=== PATIENT | male | born 1995 | race Caucasian/White ===

== ENCOUNTER 2024-01-07 10:32 | Inpatient (IN) ==
--- NOTE | 2024-01-07 11:11 | Emergency Department Note ---
Impression & Plan Suicidal ideation, Depression ED Provider Note NAME: GIOVANI SAN AGE: 28 SEX: M : 1995 ARRIVES VIA: Walk-In INFORMANT: Patient ED PROVIDER(S): Riaz Cid MD CHIEF COMPLAINT: Suicidal ideation, referred. PLAN: Disposition: Inpatient psychiatric treatment, 3S MEDICAL DECISION MAKING: The patient is a pleasant 28-year-old gentleman with a past medical history of schizoaffective disorder, bipolar disorder, suicidal ideation who presents to the emergency department referred by his PCP office for evaluation and treatment of suicidal ideation which has been ongoing for the past week in the setting of feeling increasingly depressed and hopeless hearing auditory hallucinations that talk about him but denies command hallucinations. Patient reports he stopped taking his medication present for months ago. He reports his follow-up with his outpatient mental health provider had fallen by the [place]. He otherwise denies fevers, chills, cough congestion, GI/ symptoms. He is interested in voluntary psychiatric admission and treatment. He reports he did drink alcohol yesterday to ease his depression but denies any today. On my evaluation patient is no distress, afebrile stable vital signs. He appears melancholy. He reports he reports suicidal nation per above and reports plan to buy a gun. WBC, H/H and platelets within normal limits. Chemistry without metabolic acidosis. Electrolytes and LFTs unremarkable. TSH within normal limits. UA without evidence of infection. Drug screen was positive for MDMA and THC. COVID-19 RNA, VINNIE test was negative. Patient medically cleared. Psychiatric case management assessment was completed and the patient was referred to 3 [facility]. for voluntary inpatient psychiatric treatment. The patient was accepted. 201 was signed. Triage Nursing notes reviewed and agree them. Prior/external medical records reviewed Vital Signs: reviewed Differential diagnosis: Mood disorder, infection, hypoglycemia, electrolyte abnormalities, cardiac sources, intracerebral event, toxicologic, trauma, neurologic, as well as other pathologies. ER treatment provided: N/A. Laboratory studies: See below Consultation(s): Psychiatric case management. HPI: The patient is a pleasant 28-year-old gentleman with a past medical history of schizoaffective disorder, bipolar disorder, suicidal ideation who presents to the emergency department referred by his PCP office for evaluation and treatment of suicidal ideation which has been ongoing for the past week in the setting of feeling increasingly depressed and hopeless hearing auditory hallucinations that talk about him but denies command hallucinations. Patient reports he stopped taking his medication present for months ago. He reports his follow-up with his outpatient mental health provider had fallen by the [place]. He otherwise denies fevers, chills, cough congestion, GI/ symptoms. He is interested in voluntary psychiatric admission and treatment. He reports he did drink alcohol yesterday to ease his depression but denies any today. ROS: See above HPI for pertinent positives & negatives. A total of 10 systems reviewed and were otherwise negative. VITALS:See Below PHYSICAL EXAMINATION: GENERAL: Awake, alert, nontoxic, in no distress HEAD: Atraumatic. No edema. EYES: Normal conjunctiva. Sclera non-icteric. EARS: Right TM normal. Left TM normal. NOSE: Unremarkable. OROPHARYNX: Lips, tongue, and mucosa unremarkable. No erythema, exudate, ulcerations. NECK: Supple. No nuchal rigidity. FROM. No adenopathy. RESPIRATORY: CTA bilaterally CARDIAC: Regular rate, normal rhythm. ABDOMEN: Soft, non distended. No tenderness to palpation. No hernias. BACK: Unremarkable. : Unremarkable. SKIN: No rash or jaundice noted. No desquamation. LYMPH: No adenopathy. MUSCULOSKELETAL: No edema or ecchymosis. No joint swelling. NEURO: Normal sensorium. No sensory or motor deficits noted. PSYCH: Melancholy. Reports suicidal ideation, plan to buy a gun, hopelessness, auditory hallucinations. -- Riaz Cid MD Past Med/Surg History Medical History Depression Schizoaffective disorder Social History Smoking Status: Never smoker Preferred Language: Setswana Communication Ability: Effective Line Maintainer Required: No Beliefs That Will Affect Care: None Feels Safe at Home: Yes Gender Identity: Male Assistive Devices: None Allergies Allergies Allergy/AdvReac Type Severity Reaction Status Date / Time mold Allergy Unknown ASTHMA Unverified 08/19/17 06:28 FLARES Sulfa (Sulfonamide Allergy Unknown SWELLING/SORES Unverified 08/19/17 06:28 Antibiotics) IN MOUTH Home Meds Home Medications Medication Instructions Recorded Confirmed bupropion HCl 100 mg tablet 100 mg PO DAILY 01/07/24 01/07/24 lurasidone 40 mg tablet 40 mg PO DAILY 01/07/24 01/07/24 trazodone 100 mg tablet 100 mg PO HS 01/07/24 01/07/24 Results & Data (ED) Vital Signs Vital Signs - 24 hr 01/07/24 10:34 01/07/24 10:45 01/07/24 14:30 Temperature 36.8 C 36.8 C Temperature Source Temporal Artery Scan Oral Pulse Rate 89 Pulse Rate [Right Finger] 86 86 Pulse Rhythm [Right Finger] Regular Regular Pulse Strength [Right Finger] Normal Normal Respiratory Rate 14 20 19 Respiratory Effort / Characteristics Non-Labored Spontaneous Non-Labored Spontaneous Respiratory Depth Normal Normal Respiratory Pattern Regular Regular Blood Pressure 139/87 Blood Pressure [Right Arm] 136/87 139/89 Blood Pressure Mean 104 Blood Pressure Mean [Right Arm] 103 105 Blood Pressure Position [Right Arm] Semi-fowlers Pulse Oximetry 97 98 94 Oxygen Delivery Method Room Air Room Air Room Air Sepsis New/Unexplained Change in Mental Status No Sepsis Action Taken by Nursing No Action Required Laboratory Data Attestation: I reviewed the patient's lab results. 01/07/24 11:10 01/07/24 11:10 Lab Results 01/07/24 Range/Units 11:10 WBC 8.77 (4.8-10.8) K/ul RBC 5.19 (4.70-6.10) M/uL Hgb 15.5 (14.0-18.0) g/dl Hct 44.9 (42.0-52.0) % MCV 86.5 (80.0-100.0) fL MCH 29.9 (25.0-34.0) pg MCHC 34.5 (32.0-36.0) g/dL RDW Std Deviation 40.5 (36.4-46.3) fL RDW Coeff of Samy 13.0 (11.5-14.5) % Plt Count 328 (130-400) K/uL MPV 10.8 (9.4-12.4) fL Immature Gran % (Auto) 0.2 % Neut % (Auto) 74.2 % Lymph % (Auto) 16.2 % [place] % (Auto) 8.4 % Eos % (Auto) 0.8 % Baso % (Auto) 0.2 % Neut # (Auto) 6.50 (1.40-6.50) K/uL Lymph # (Auto) 1.42 (1.20-3.40) K/uL [place] # (Auto) 0.74 H (0.11-0.59) K/uL Eos # (Auto) 0.07 (0.00-0.50) K/uL Baso # (Auto) 0.02 (0.00-0.20) K/uL Immature Gran # (Auto) 0.02 (0.01-0.20) K/uL Sodium 135 L (136-145) mmol/L Potassium 4.1 (3.5-5.1) mmol/L Chloride 103 (98-107) mmol/L Carbon Dioxide 24 (21-32) mmol/L Anion Gap 8 (3-11) BUN 13 (6-23) mg/dl Creatinine 0.83 (0.6-1.4) mg/dl Est Cr Clr Drug Dosing 194.0 ml/min Est GFR ( Amer) 140.7 ml/min Est GFR (Non-Af Amer) 121.4 ml/min BUN/Creatinine Ratio 15.7 (10-20) Glucose 90 (70-99(Fasting)) mg/dl Calcium 9.1 (8.6-10.3) mg/dl Total Bilirubin 0.4 (0.2-1.0) mg/dl AST 17 (13-39) U/L ALT 17 (7-52) U/L Alkaline Phosphatase 81 (34-104) U/L Total Protein 7.7 (6.0-8.3) gm/dl Albumin 4.4 (3.4-5.0) gm/dl Globulin 3.3 (2.5-4.0) gm/dl Albumin/Globulin Ratio 1.3 (0.9-2) TSH 0.665 (0.300-4.500) uIu/ml Salicylates < 3.0 L (3.0-30) mg/dl Acetaminophen < 3 L (10-30) ug/ml Ethyl Alcohol mg/dL < 10.0 (<10.0) mg/dl Administered Medications Nicotine (Nicotine 21 Mg/24 Hr Tdsy) 21 mg TD QAM MARJORIE Stop: 02/06/24 14:44 Last Admin: 01/07/24 18:59 Dose: Not Given Documented By: RB Discharge Plan Visit Data Chief Complaint: Mental Health Evaluation Stated Complaint: [facility] ED Provider: Riaz Cid Discharge Problem: Suicidal ideation, Depression Patient Disposition: Admitted As Inpatient Discharge Instructions Interventions: ED Discharge Assessment Last Done: 01/07/24 15:35 Discharge Problem: Depression Qualifiers: Depression Type: unspecified Qualified Code(s): F32.A - Depression, unspecified
[2024-01-07 11:34] LABS: Basophils # (auto) 0.02 K/uL (0.00-0.20); Basophils % (auto) 0.2 %; Eosinophils # (auto) 0.07 K/uL (0.00-0.50); Eosinophils % (auto) 0.8 %; Hematocrit (blood only) 44.9 % (42.0-52.0); Hemoglobin 15.5 g/dl (14.0-18.0); Immature Granulocytes # (auto) 0.02 K/uL (0.01-0.20); Immature Granulocytes % (auto) 0.2 %; Lymphocytes # (auto) 1.42 K/uL (1.20-3.40); Lymphocytes % (auto) 16.2 %; Mean Corpuscular Hemoglobin 29.9 pg (25.0-34.0); Mean Corpuscular Hgb Conc 34.5 g/dL (32.0-36.0); Mean Corpuscular Volume 86.5 fL (80.0-100.0); Mean Platelet Volume 10.8 fL (9.4-12.4); Monocytes # (auto) 0.74 K/uL (0.11-0.59); Monocytes % (auto) 8.4 %; Neutrophils % (auto) 74.2 %; Platelet Count 328 K/uL (130-400); RDW Standard Deviation 40.5 fL (36.4-46.3); Red Blood Count 5.19 M/uL (4.70-6.10); White Blood Count 8.77 K/ul (4.8-10.8)
[2024-01-07 11:47] LABS: Appearance Urine Clear (Clear); Bilirubin Urine Negative (Negative); Blood Urine Negative (Negative); Color Urine Yellow; Glucose Urine UA Negative (Negative); Ketones Urine 1+ (Negative); Leukocyte Esterase Urine Negative (Negative); Nitrite Urine Negative (Negative); Protein Urine Negative (Negative); Specific Gravity Urine 1.009 (1.000-1.030); Urobilinogen Urine Negative (Negative)
[2024-01-07 11:49] LABS: Albumin Level 4.4 gm/dl (3.4-5.0); Bilirubin,Total 0.4 mg/dl (0.2-1.0); Calcium 9.1 mg/dl (8.6-10.3); Potassium 4.1 mmol/L (3.5-5.1)
[2024-01-07 11:55] LABS: Albumin Globulin Ratio 1.3 (0.9-2); BUN Creatinine Ratio 15.7 (10-20); Est GFR (African American) 140.7 ml/min; Est GFR (Non-African American) 121.4 ml/min; Globulin 3.3 gm/dl (2.5-4.0); Total Protein 7.7 gm/dl (6.0-8.3)
[2024-01-07 12:08] LABS: Thyroid Stimulating Hormone 0.665 uIu/ml (0.300-4.500)
[2024-01-07 12:13] LABS: Acetaminophen < 3 ug/ml (10-30); Salicylate < 3.0 mg/dl (3.0-30)
[2024-01-07 12:20] LABS: Amphetamines+Metham, Urine Neg (Neg); Barbiturates, Urine Neg (Neg); Benzodiazepine, Urine Neg (Neg); Cocaine, Urine Neg (Neg); MDMA (Ecstacy), Urine Pos (Neg); Marijuana, Urine Pos (Neg); Methadone, Urine Neg (Neg); Opiate, Urine Neg (Neg); Phencyclidine, Urine Neg (Neg)
[2024-01-07] MEDS ORDERED: ACETAMINOPHEN 325 MG TAB PO PRN (14:33)
[2024-01-07] MEDS ORDERED: SODIUM CHLORIDE 0.65% NA SOLN 45 ML (OCEAN) PRN (14:33)
[2024-01-07] MEDS ORDERED: ALUMINUM/MAGNESIUM SUSP 30 ML UDC PO PRN (14:33)
[2024-01-07] MEDS ORDERED: MAGNESIUM HYDROXIDE SUSP 30 ML UDC PO PRN (14:33)
[2024-01-07] MEDS ORDERED: NICOTINE POLACRILEX 2 MG GUM MT PRN (14:33)
[2024-01-07] MEDS ORDERED: BISMUTH SUBSALICYLATE LIQD 236 ML PO PRN (14:33)
--- OUTSIDE RECORDS SUMMARY | 2024-01-07 16:12 | External Medical Summary | Summary of Care ---
Author Name Unknown Organization [facility] Address [address] [place] [address] Phone [phone] Care Team Providers Care American Sign Language Interpreter Name Role Phone Unavailable Primary Care Provider Unavailabl e Encounter Details Date Type Department Care Team (Late st Contact Info) Description 11/19/2023 Orders Only Outcomes Research Department [address] [place] [address] Charissa Edmond CHRA [employer] Other*[id number] Allergies Active Allergy Reactions Criticality Noted Date Comments Amphetamine-Dextroamphetam ine 04/18/2021 Urine screening toxicology inconsistent with medical therapy. Not appropriate for refill of stimulant medication for ADD Sulfa Antibiotics 05/31/1999 rash and mouth ulcers Sulfites 10/30/2006 Dried apricots,trail mix documented as of this encounter (statuses as of 11/19/2023) Medications Medication Sig Dispensed Refills Start Date End Date Status buPROPion HCl ER (SR) 100 MG Oral Tablet Extended Release 12 Hour (Wellbutrin SR) Take 1 Tablet by mouth in the morning. 0 Active Lurasidone HCl 40 MG Oral Tablet Take by mouth daily . 0 Active [place] Carbonate 150 MG Oral Capsule (Eskalith) Take 1 Capsule by mouth in the morning and 1 Capsule at noon and 1 Capsule in the evening. Take with meals. 0 Active traZODone HCl 100 MG Oral Tablet (Desyrel) take 1 AND 1/2 tablets by mouth at bedtime if needed 0 07/22/2023 Active Azithromycin 250 MG Oral Tablet (Zithromax Z-Rancho)Indications:Ac [place] sinusitis, recurrence not specified, unspecified location Take two tablets by mouth on first day, then 1 tablet daily until gone 6 Tablet 0 10/22/2023 Active Molnupiravir 200 MG Oral CapsuleIndications:C OVID-19 virus infection Take 4 Capsules by mouth in the morning and 4 Capsules before bedtime. 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 documented as of this encounter (statuses as of 11/19/2023) Resolved Problems Problem Noted Date Diagnosed Date Resolved Date Schizoaffective disorder, depressive type 08/06/2023 10/22/2023 Food insecurity 05/02/2021 05/12/2021 Overview: Per [facility] Protocol Acute bronchitis, complicated 02/05/2012 03/19/2013 Acute atopic conjunctivitis 10/16/2006 03/19/2013 ADVANCE DIRECTIVE INFORMATION 02/23/2006 07/29/2008 Overview: Not applicable Allergic rhinitis 01/01/2003 11/06/2012 Nocturnal enuresis 03/31/2002 8 documented as of this encounter (statuses as of 11/19/2023) Immunizations Name Administration Dates Next Due COVID-19, mRNA, LNP-s, PF, B ooster, 100mcg/0.5mg (Moderna) 09/25/2021 Covid-19 Ad26, Single Dose ([place]/J&J) 01/31/2021 HPV Vaccine, 4-Valent 03/19/2013 HPV Vaccine, 9-Valent 08/21/2017 Hep A - Hepatitis A (ped/ado le, 1-18 Yrs) 10/13/2008,07/05/2007 Meningococcal Conjugate Vacc ine (Menactra/Menveo) 10/13/2008 Seasonal Influenza, PF, 6 M & above, IM , (FluLaval or Fluzone) 09/13/2021,08/21/2017 Seasonal Influenza, Split, I IV3, With Preserve, Inj 06/06/2012,08/15/2010,06/29/2008,06/24,08/14/2006 06/06/2013 TDAP (age 11 and older)(Adacel) 10/13/2008 Varicella Vaccine (Chicken Pox) 07/05/2007 documented as of this encounter Social History Tobacco Use Types Packs/Day Years Used Date Smoking Tobacco: Never Smokeless Tobacco: Never Alcohol Use Standard Drinks/Week Comments Not Currently 0 (1 standard drink = 0.6 oz pur e alcohol) PHQ-2 Answer Date Recorded PHQ Adult Total Score 12 04/04/2021 Hunger Vital Sign Answer Date Recorded Within the past 12 months, y ou worried that your food would run out before you got the money to buy more. Sometimes true Within the past 12 months, t he food you bought just didn't last and you didn't have money to get more. Never true 07/2021 Sex and Gender Information Value Date Recorded Sex Assigned at Not on file Gender Identity Not on file Sexual Orientation Not on file Job Start Date Occupation Industry Not on file Not on file Not on file documented as of this encounter Plan of Treatment Upcoming Encounters Date Type Department Care Team (Late st Contact Info) Description 11/26/2023 9:40 AM EST Office Visit Family Practice [facility] [address] [id number] Millie Gaytan CRNP [address] [id number] Scheduled Orders Name Type Priority Associated Diagnoses Orde r Schedule MYCODE INITIAL ADULT Lab Routine [employer] Research Other*[id number] Expected: 11/19/2023 (Approximate), Expires: 12/08/2024 Health Maintenance Due Date Last Done Comments Pneumococcal Vaccine: Pediatrics (0 to 5 Years) and At-Risk Patients (6 to 64 Years) (1 of 2 - PCV) 2003 HIV Screening 02/08/2012 Hepatitis C Screening 2015 GARDASIL-HPV IMMUNIZATION SERIES (3 - Male 3-dose series) 11/13/2017 08/21/2017, 03/19/2013 DTaP,Tdap,and Td Vaccines (7 - Td or Tdap) 10/13/2018 10/13/2008, 03/31/2002, 07/30/1998, Additional history exists Depression, Most Recent Score >= 10 (will fire each visit until score < 10) 04/05/2021 04/04/2021 COVID-19 Vaccine ( - season) 2023 09/25/2021, 01/31/2021 Influenza Vaccine (FLU shot) (#1) 2023 09/13/2021, 08/21/2017, 06/06/2012, Additional history exists Hepatitis B Completed [birth year] MENINGOCOCCAL (MENACTRA/MENVEO) Aged Out 10/13/2008 No longer eligible based on patient's age to complete this topic documented as of this encounter Medical Devices Not on filedocumented as of this encounter Visit Diagnoses Diagnosis [employer] [facility] Other*[id number] documented in this encounter
--- OUTSIDE RECORDS SUMMARY | 2024-01-07 16:12 | External Medical Summary | Summary of Care ---
Author Name Unknown Organization [facility] Address [address] [facility] [place] [place] [address] Phone [phone] Care Team Providers Care Cover Assembler Name Role Phone Unavailable Primary Care Provider Unavailabl e Encounter Details Date Type Department Care Team (Late st Contact Info) Description 11/14/2023 Orders Only PATIENT PORTAL DO NOT DELETE THIS DEPT USED BY [address] [place] [id number] Allergies Active Allergy Reactions Criticality Noted Date Comments Amphetamine-Dextroamphetam ine 04/18/2021 Urine screening toxicology inconsistent with medical therapy. Not appropriate for refill of stimulant medication for ADD Sulfa Antibiotics 05/31/1999 rash and mouth ulcers Sulfites 10/30/2006 Dried apricots,trail mix documented as of this encounter (statuses as of 11/14/2023) Medications Medication Sig Dispensed Refills Start Date End Date Status buPROPion HCl ER (SR) 100 MG Oral Tablet Extended Release 12 Hour (Wellbutrin SR) Take 1 Tablet by mouth in the morning. 0 Active Lurasidone HCl 40 MG Oral Tablet Take by mouth daily . 0 Active [place] Carbonate 150 MG Oral Capsule (Eskalith) Take 1 Capsule by mouth in the morning and 1 Capsule at noon and 1 Capsule in the evening. Take with meals. 0 Active traZODone HCl 100 MG Oral Tablet (Desyrel) take 1 AND 1/2 tablets by mouth at bedtime if needed 0 07/22/2023 Active Azithromycin 250 MG Oral Tablet (Zithromax Z-Rancho)Indications:Ac [place] sinusitis, recurrence not specified, unspecified location Take two tablets by mouth on first day, then 1 tablet daily until gone 6 Tablet 0 10/22/2023 Active Molnupiravir 200 MG Oral CapsuleIndications:C OVID-19 virus infection Take 4 Capsules by mouth in the morning and 4 Capsules before bedtime. 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 documented as of this encounter (statuses as of 11/14/2023) Resolved Problems Problem Noted Date Diagnosed Date Resolved Date Schizoaffective disorder, depressive type 08/06/2023 10/22/2023 Food insecurity 05/02/2021 05/12/2021 Overview: Per [facility] Protocol Acute bronchitis, complicated 02/05/2012 03/19/2013 Acute atopic conjunctivitis 10/16/2006 03/19/2013 ADVANCE DIRECTIVE INFORMATION 02/23/2006 07/29/2008 Overview: Not applicable Allergic rhinitis 01/01/2003 11/06/2012 Nocturnal enuresis 03/31/2002 8 documented as of this encounter (statuses as of 11/14/2023) Immunizations Name Administration Dates Next Due COVID-19, [...] as of this encounter Plan of Treatment Health Maintenance Due Date Last Done Comments [...] score < 10) 04/05/2021 04/04/2021 COVID-19 Vaccine (3 - 2022- season) 2023 09/25/2021, 01/31/2021 Influenza Vaccine (FLU shot) (#1) 2023 09/13/2021, 08/21/2017, 06/06/2012, Additional history exists Hepatitis B Completed 1995, 03/25, 1995 MENINGOCOCCAL (MENACTRA/MENVEO) Aged Out 10/13/2008 No longer eligible based on patient's age to complete this topic documented as of this encounter Medical Devices Not on filedocumented as of this encounter
--- OUTSIDE RECORDS SUMMARY | 2024-01-07 16:12 | External Medical Summary | Summary of Care ---
Author Name Unknown Organization [facility] Address [address] [facility] [place] [address] Phone [phone] Care Team Providers Care Connection Worker Name Role Phone Unavailable Primary Care Provider Unavailabl e Reason for Visit * Reason Comments Acute Congestion Cough Encounter Details Date Type Department Care Team (Late st Contact Info) Description 10/22/2023 11:20 AM EST Telemedicine Family Practice [facility] [address] [address] Nadia Pereyra PA-C [address] [address] Acute sinusitis, recurrence not specified, unspecified location*; Acute cough; Mild intermittent asthma, uncomplicated Allergies Active Allergy Reactions Criticality Noted Date Comments Amphetamine-Dextroamphetam ine 04/18/2021 Urine screening toxicology inconsistent with medical therapy. Not appropriate for refill of stimulant medication for ADD Sulfa Antibiotics 05/31/1999 rash and mouth ulcers Sulfites 10/30/2006 Dried apricots,trail mix documented as of this encounter (statuses as of 10/22/2023) Medications Medication Sig Dispensed Refills Start Date End Date Status buPROPion HCl ER (SR) 100 MG Oral Tablet Extended Release 12 Hour (Wellbutrin SR) Take 1 Tablet by mouth in the morning. 0 Active Lurasidone HCl 40 MG Oral Tablet Take by mouth daily . 0 Active [place] Carbonate 150 MG Oral Capsule (Eskalith) Take 1 Capsule by mouth in the morning and 1 Capsule at noon and 1 Capsule in the evening. Take with meals. 0 Active traZODone HCl 100 MG Oral Tablet (Desyrel) take 1 AND 1/2 tablets by mouth at bedtime if needed 0 07/22/2023 Active Azithromycin 250 MG Oral Tablet (Zithromax Z-Rancho)Indications:Acut e sinusitis, recurrence not specified, unspecified location Take two tablets by mouth on first day, then 1 tablet daily until gone 6 Tablet 0 10/22/2023 Active documented as of this encounter (statuses as of 10/22/2023) Active Problems Problem Noted Date Diagnosed Date Food insecurity 06/06/2021 Overview: Per [facility] Protocol ADHD (attention deficit hype ractivity disorder), combined type 05/12/2021 LANI (generalized anxiety disorder) 05/12/2021 Allergic rhinitis 11/06/2012 Ocular migraine 07/10/2012 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 documented as of this encounter (statuses as of 10/22/2023) Resolved Problems Problem Noted Date Diagnosed Date Resolved Date Schizoaffective disorder, depressive type 08/06/2023 10/22/2023 Food insecurity 05/02/2021 05/12/2021 Overview: Per [facility] Protocol Acute bronchitis, complicated 02/05/2012 03/19/2013 Acute atopic conjunctivitis 10/16/2006 03/19/2013 ADVANCE DIRECTIVE INFORMATION 02/23/2006 07/29/2008 Overview: Not applicable Allergic rhinitis 01/01/2003 11/06/2012 Nocturnal enuresis 03/31/2002 8 documented as of this encounter (statuses as of 10/22/2023) Immunizations Name Administration Dates Next Due COVID-19, [...] on file documented as of this encounter Progress Notes * Nadia Pereyra PA-C - 10/22/2023 1:11 PM EST Patient location: HOME. I was in a hospital or clinic location. After connecting through televideo,patient was verified with two unique identifiers. Patient (or authorized legal apprenticeship representative) was then informed that this was a Telemedicine visit and being conducted confidentially over secure lines. Methods to assure confidentiality were taken. Patient acknowledged consent and understanding of pr ivacy and security of the Telemedicine visit. The patient agreed to participate. Patient is a 28 yr old male with complaints of cough and sinus congestion x 3 weeks. Patient stateshe has been using over the counter with little relief. Patient states he is unsure of a fever. Patient states he is bringing up a lot of phlegm as well. Past Medical History: Diagnosis Date Allergic rhinitis 11/06/2012 Intermittent asthma with reliever use up to twice per week 01/01/2003 2013-no need for inhalers. 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 Good network of friends. Lives with father--. Social Determinants of Health Financial Resource Strain: Not on file Food Insecurity: Food Insecurity Present (04/03/2021) Hunger Vital Sign Worried About Running Out of Food in the Last Year: Sometimes true Ran Out of Food in the Last Year: Never true Transportation Needs: Not on file Physical Activity: Not on file Stress: Not on file Social Connections: Not on file Intimate Partner Violence: Not on file Housing Stability: Not on file Family History Problem Relation Age of Onset Hypertension Father Other (low thyroid) Father 39 Thyroid Disorder Grandmother (Maternal) low thyroid Neurological Disorder Mother Heart Disorder Grandfather (Paternal) 62 CA- No Past Hx Brother older bro Heart Disorder Uncle (Unspecified) 34 several MIs--in past Patient Active Problem List Diagnosis Code Intermittent asthma with reliever use up to twice per week J45.20 Intestinal disaccharidase deficiency E73.9 Ocular migraine G43.109 Allergic rhinitis J30.9 ADHD (attention deficit hyperactivity disorder), combined type F90.2 LANI (generalized anxiety disorder) F41.1 Food insecurity Z59.41 Current Outpatient Medications Medication Sig Dispense Refill Azithromycin 250 MG Oral Tablet (Zithromax Z-Rancho) Take two tablets by mouth on first day, then 1 tablet daily until gone 6 Tablet 0 buPROPion HCl ER (SR) 100 MG Oral Tablet Extended Release 12 Hour (Wellbutrin SR) Take 1 Tablet by mouth in the morning. Lurasidone HCl 40 MG Oral Tablet Take by mouth daily . [place] Carbonate 150 MG Oral Capsule (Eskalith) Take 1 Capsule by mouth in the morning and 1 Capsule at noon and 1 Capsule in the evening. Take with meals. traZODone HCl 100 MG Oral Tablet (Desyrel) take 1 AND 1/2 tablets by mouth at bedtime if needed No current facility-administered medications for this visit. ALLERGIES REVIEWED AND UPDATED. Review of Systems: See HPI for pertinent positives. All other review of systems is negative. MALE PHYSICAL EXAM There were no vitals taken for this visit. GENERAL: alert, healthy, and no distress HEAD: Normocephalic, No masses, lesions, tenderness or abnormalities SKIN: skin color, texture, turgor are normal, no rashes or significant lesions EYES: PERRLA, extraocular movements intact, conjunctiva are pink and non- injected, sclera clear Assessment & Plan (J01.90) Acute sinusitis, recurrence not specified, unspecified location (primary encounter diagnosis) Plan: Azithromycin 250 MG Oral Tablet (Zithromax Z-Rancho) Increase fluids and rest. Recommended tylenol or motrin for symptoms relief. If symptoms persist orworsen patient to return to office. (R05.1) Acute cough Plan: increase fluids and rest. Recommended tylenol or motrin for symptoms relief. If symptoms persist or worsen patient to return to office (J45.20) Mild intermittent asthma, uncomplicated Plan: stable. Follow up with pcp as needed. I spent a total of 20-29 minutes (exact time 21 mins) on the date of service in preparation, delivery, and documentation of the care provided to Nacho Michaels excluding any time spent in the performance of separately billed services. documented in this encounter Plan of Treatment Health Maintenance Due Date Last Done Comments Pneumococcal Vaccine: Pediatrics (0 to 5 Years) and At-Risk Patients (6 to 64 Years) (1 - PCV) 2003 HIV Screening 02/08/2012 Hepatitis C Screening 2015 GARDASIL-HPV IMMUNIZATION SERIES (3 - Male 3-dose series) 11/13/2017 08/21/2017, 03/19/2013 DTaP,Tdap,and Td Vaccines (7 - Td or Tdap) 10/13/2018 10/13/2008, 03/31/2002, 07/30/1998, Additional history exists Depression, Most Recent Score >= 10 (will fire each visit until score < 10) 04/05/2021 04/04/2021 COVID-19 Vaccine ( season) 2023 09/25/2021, 01/31/2021 Influenza Vaccine (FLU shot) (#1) 2023 09/13/2021, 08/21/2017, 06/06/2012, Additional history exists Hepatitis B Completed 1997, 03/25, 1997 MENINGOCOCCAL (MENACTRA/MENVEO) Aged Out 10/13/2008 No longer eligible based on patient's age to complete this topic documented as of this encounter Medical Devices Not on filedocumented as of this encounter Visit Diagnoses Diagnosis Acute sinusitis, recurrence not specified, unspecified location- Primary Acute cough Mild intermittent asthma, uncomplicated Unspecified asthma documented in this encounter
--- OUTSIDE RECORDS SUMMARY | 2024-01-07 16:12 | External Medical Summary | Summary of Care ---
Author Name Unknown Organization [facility] Address [address] [place] [address] Phone [phone] Care Team Providers Care Elevator Repairer Apprentice Name Role Phone Unavailable Primary Care Provider Unavailabl e Reason for Visit * Reason Comments Acute Encounter Details Date Type Department Care Team (Late st Contact Info) Description 10/23/2023 5:40 PM EST [facility] [address] [place] [address] Ranjith Mckay, [address] [place] [address] COVID-19 virus infection* Allergies Active Allergy Reactions Criticality Noted Date Comments Amphetamine-Dextroamphetam ine 04/18/2021 Urine screening toxicology inconsistent with medical therapy. Not appropriate for refill of stimulant medication for ADD Sulfa Antibiotics 05/31/1999 rash and mouth ulcers Sulfites 10/30/2006 Dried apricots,trail mix documented as of this encounter (statuses as of 10/23/2023) Medications Medication Sig Dispensed Refills Start Date End Date Status buPROPion HCl ER (SR) 100 MG Oral Tablet Extended Release 12 Hour (Wellbutrin SR) Take 1 Tablet by mouth in the morning. 0 Active Lurasidone HCl 40 MG Oral Tablet Take by mouth daily . 0 Active [place] Carbonate 150 MG Oral Capsule (Eskalith) Take 1 Capsule by mouth in the morning and 1 Capsule at noon and 1 Capsule in the evening. Take with meals. 0 Active traZODone HCl 100 MG Oral Tablet (Desyrel) take 1 AND 1/2 tablets by mouth at bedtime if needed 0 07/22/2023 Active Azithromycin 250 MG Oral Tablet (Zithromax Z-Rancho)Indications:Ac maximo sinusitis, recurrence not specified, unspecified location Take two tablets by mouth on first day, then 1 tablet daily until gone 6 Tablet 0 10/22/2023 Active Molnupiravir 200 MG Oral CapsuleIndications:C OVID-19 virus infection Take 4 Capsules by mouth in the morning and 4 Capsules before bedtime. 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 documented as of this encounter (statuses as of 10/23/2023) Resolved Problems Problem Noted Date Diagnosed Date Resolved Date Schizoaffective disorder, depressive type 08/06/2023 10/22/2023 Food insecurity 05/02/2021 05/12/2021 Overview: Per [facility] Protocol Acute bronchitis, complicated 02/05/2012 03/19/2013 Acute atopic conjunctivitis 10/16/2006 03/19/2013 ADVANCE DIRECTIVE INFORMATION 02/23/2006 07/29/2008 Overview: Not applicable Allergic rhinitis 01/01/2003 11/06/2012 Nocturnal enuresis 03/31/2002 8 documented as of this encounter (statuses as of 10/23/2023) Immunizations Name Administration Dates Next Due COVID-19, [...] as of this encounter Progress Notes * Ranjith Mckay, - 10/23/2023 5:40 PM EST Patient location: HOME. I was in a hospital or clinic location. After connecting through televideo,patient was verified with two unique identifiers. Patient (or authorized legal surgical device sales representative) was then informed that this was a Telemedicine visit and being conducted confidentially over secure lines. Methods to assure confidentiality were taken. Patient acknowledged consent and understanding of pr ivacy and security of the Telemedicine visit. The patient agreed to participate. He has two days of symptoms and a positive covid test. O: he is alert and in NAD. Respirations are even COVID-19 virus infection (Primary) - RETURN TO WORK OR SCHOOL - Molnupiravir 200 MG Oral Capsule; Take 4 Capsules by mouth in the morning and 4 Capsules before bedtime. Ranjith Mckay DO documented in this encounter Plan of Treatment [...] as of this encounter Visit Diagnoses Diagnosis COVID-19 virus infection- Primary documented in this encounter
--- OUTSIDE RECORDS SUMMARY | 2024-01-07 16:13 | External Medical Summary | Summary of Care ---
Author Name Unknown Organization [facility] Address [address] [facility] [place] [address] Phone [phone] Care Team Providers Care Chip Washer Name Role Phone Unavailable Primary Care Provider Unavailabl e Reason for Visit * Reason Comments Palpitations Patient states x's 2 weeks possibly after taking cold medication. Patient states he can feel 2 off beats. Encounter Details Date Type Department Care Team (Late st Contact Info) Description 08/06/2023 6:00 PM EST Office Visit General Internal Medicine [facility] [place] [address] [facility] [place] [address] Diego Hancock PA-C [address] [facility] [place] [address] Palpitations*; Mild intermittent asthma, uncomplicated; Schizoaffective disorder, depressive type (HCC) Allergies Active Allergy Reactions Criticality Noted Date Comments Amphetamine-Dextroamphetam ine 04/18/2021 Urine screening toxicology inconsistent with medical therapy. Not appropriate for refill of stimulant medication for ADD Sulfa Antibiotics 05/31/1999 rash and mouth ulcers Sulfites 10/30/2006 Dried apricots,trail mix documented as of this encounter (statuses as of 08/06/2023) Medications Medication Sig Dispensed Refills Start Date End Date Status buPROPion HCl ER (SR) 100 MG Oral Tablet Extended Release 12 Hour (Wellbutrin SR) Take 1 Tablet by mouth in the morning. 0 Active Lurasidone HCl 40 MG Oral Tablet Take by mouth daily . 0 Active [place] Carbonate 150 MG Oral Capsule (Eskalith) Take 1 Capsule by mouth in the morning and 1 Capsule at noon and 1 Capsule in the evening. Take with meals. 0 Active traZODone HCl 100 MG Oral Tablet (Desyrel) take 1 AND 1/2 tablets by mouth at bedtime if needed 0 07/22/2023 Active Omeprazole 20 MG Oral Capsule Delayed Release (PriLOSEC)Indicati ons:RUQ abdominal pain Take 1 Cap by mouth daily. 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 documented as of this encounter (statuses as of 08/06/2023) Resolved Problems Problem Noted Date Diagnosed Date Resolved Date Food insecurity 05/02/2021 05/12/2021 Overview: Per [email or web address] Protocol Acute bronchitis, complicated 02/05/2012 03/19/2013 Acute atopic conjunctivitis 10/16/2006 03/19/2013 ADVANCE DIRECTIVE INFORMATION 02/23/2006 07/29/2008 Overview: Not applicable Allergic rhinitis 01/01/2003 11/06/2012 Nocturnal enuresis 03/31/2002 8 documented as of this encounter (statuses as of 08/06/2023) Immunizations Name Administration Dates Next Due COVID-19, mRNA, LNP-s, PF, B ooster, 100mcg/0.5mg (Moderna) 09/25/2021 Covid-19 Ad26, Single Dose ([place]cadio/J&J) 01/31/2021 HPV Vaccine, 4-Valent 03/19/2013 HPV Vaccine, 9-Valent 08/21/2017 Hep A - Hepatitis A (ped/ado le, 1-18 Yrs) 10/13/2008,07/05/2007 Meningococcal Conjugate Vacc ine (Menactra/Menveo) 10/13/2008 SEASONAL INFLUENZA, PF, 6 M & Above, IM , (FLULAVAL or FLUZONE) 09/13/2021,08/21/2017 Seasonal Influenza, Split, I IV3, With Preserve, Inj 06/06/2012,08/15/2010,06/29/2008,06/24,08/14/2006 06/06/2013 TDAP (age 11 and older)(Adacel) 10/13/2008 Varicella Vaccine (Chicken Pox) 07/05/2007 documented as of this encounter Social History Tobacco Use Types Packs/Day Years Used Date Smoking Tobacco: Never Smokeless Tobacco: Never Tobacco Cessation:Counseling Given: Not Answered Alcohol Use Standard Drinks/Week Comments Not Currently [...] on file documented as of this encounter Last Filed Vital Signs Vital Sign Reading Time Taken Comments Blood Pressure 120/70 08/06/2023 5:48 PM EST Pulse 101 08/06/2023 5:48 PM EST Temperature 37.1 C (98.7 F) 08/06/2023 5:48 PM ES T Respiratory Rate - - Oxygen Saturation 97% 08/06/2023 5:48 PM EST Inhaled Oxygen Concentration - - Weight 107.7 kg (237 lb 8 oz) 08/06/2023 5:48 PM EST Height 186.7 cm (6' 1.5") 08/06/2023 5:48 PM EST Body Mass Index 30.91 08/06/2023 5:48 PM EST documented in this encounter Progress Notes * Diego Hancock PA-C - 08/06/2023 5:58 PM EST Subjective: Nacho Michaels is a 28 year old male. Chief Complaint Patient presents with Palpitations Patient states x's 2 weeks possibly after taking cold medication. Patient states he can feel 2 off beats. HPI: 28 y/o male with asthma, ADHD, schizoaffective disorder seen today with complaint of feeling heart is taking extra beat for two beats about every 5 minutes. Used Nyquil capsules two weeks ago when symptoms. Denies chest pain, SOB, MARSH. Heart disorder in multiple relatives. Nothing in parents. PMH: Patient Active Problem List Diagnosis Code Intermittent asthma with reliever use up to twice per week J45.20 Intestinal disaccharidase deficiency E73.9 Ocular migraine G43.109 Allergic rhinitis J30.9 ADHD (attention deficit hyperactivity disorder), combined type F90.2 LANI (generalized anxiety disorder) F41.1 Food insecurity Z59.41 Schizoaffective disorder, depressive type ([facility]) F25.1 Current Outpatient Medications Medication Sig Dispense Refill buPROPion HCl ER (SR) 100 MG Oral Tablet Extended Release 12 Hour (Wellbutrin SR) Take 1 Tablet by mouth in the morning. Lurasidone HCl 40 MG Oral Tablet Take by mouth daily . [place] Carbonate 150 MG Oral Capsule (Eskalith) Take 1 Capsule by mouth in the morning and 1 Capsule at noon and 1 Capsule in the evening. Take with meals. traZODone HCl 100 MG Oral Tablet (Desyrel) take 1 AND 1/2 tablets by mouth at bedtime if needed No current facility-administered medications for this visit. Review of patient's allergies indicates: Allergen Reactions Adderall [Amphetamine-Dextroamphetamine] Urine screening toxicology inconsistent with medical therapy. Not appropriate for refill of stimulant medication for ADD Sulfa Antibiotics rash and mouth ulcers Sulfites Dried apricots,trail mix All other review of systems reviewed and negative other than mentioned in HPI. Objective: BP 120/70 | Pulse 101 | Temp 37.1 C (98.7 F) | Ht 1.867 m (6' 1.5") | Wt 107.7 kg (237 lb 8 oz)| SpO2 97% | BMI 30.91 kg/m | BSA 2.36 m Physical Exam Constitutional: General: He is not in acute distress. Appearance: Normal appearance. He is normal weight. He is not ill-appearing or toxic-appearing. HENT: Head: Normocephalic and atraumatic. Eyes: Extraocular Movements: Extraocular movements intact. Conjunctiva/sclera: Conjunctivae normal. Pupils: Pupils are equal, round, and reactive to light. Cardiovascular: Rate and Rhythm: Normal rate and regular rhythm. Heart sounds: Normal heart sounds. No murmur heard. No friction rub. No gallop. Pulmonary: Effort: Pulmonary effort is normal. Breath sounds: Normal breath sounds. No wheezing, rhonchi or rales. Abdominal: General: Bowel sounds are normal. There is no distension. Palpations: Abdomen is soft. There is no mass. Tenderness: There is no abdominal tenderness. There is no guarding or rebound. Neurological: Mental Status: He is alert. EKG NSR at rate of 79 ASSESSMENT: Palpitations (Primary) - EKG; Future; Expected date: 08/06/2023 EKG reassuring. Discussed doing Zio. Declines today. Can call if would like to perform. Labs monitored with psychiatric treatment so do not suspect needs repeated at this time. Mild intermittent asthma, uncomplicated No inhaler therapy. Schizoaffective disorder, depressive type (HCC) Labs monitored routinely and just does. [place] not therapeutic. Diego Hancock PA-C documented in this encounter Nursing Notes * Doreen Doan LPN - 08/06/2023 5:48 PM EST Chief Complaint Patient presents with Palpitations Patient states x's 2 weeks possibly after taking cold medication. Patient states he can feel 2 off beats. documented in this encounter Plan of Treatment Scheduled Orders Name Type Priority Associated Diagnoses Orde r Schedule EKG EKG Routine Palpitations Expected: 08/06/2023 (Approximate), Expi res: 09/05/2024 Health Maintenance Due Date Last Done Comments [...] as of this encounter Visit Diagnoses Diagnosis Palpitations- Primary Mild intermittent asthma, uncomplicated Unspecified asthma Schizoaffective disorder, depressive type (HCC) Schizoaffective disorder, unspecified condition documented in this encounter
[2024-01-07] MEDS: NICOTINE 21 MG/24 HR TDSY TD SCH (18:59)
[2024-01-07] MEDS: hydrOXYzine HCl 25 MG TAB PO PRN (22:16)
--- OUTSIDE RECORDS SUMMARY | 2024-01-08 05:39 | External Medical Summary | Summary of Care ---
Author Name Unknown Organization [facility] Address [address] [facility] [place] [address] Phone [phone] Care Team Providers Care Assistant Shift Supervisor Name Role Phone Unavailable Primary Care Provider Unavailabl e Reason for Referral * Evaluate & Treat - Unlimited Visits (Within 24 hrs (call dept; emergent)) - Authorized Specialty Diagnoses / Procedures Referred By Contya t Referred To Contact Psychiatry Diagnoses Schizoaffective disorder, depressive type (HCC) Ana Uribe DO [address] [place] [address] Referral ID Status Reason Start Date Expiration Date Visits Requested Visits Authorized [id number] Authorized Specialty Services Required 01/07/[phone] Question Answer Referral Priority Within 24 hrs (call dept; emergent) Where should this appointment be scheduled? [facility] Is this referral for medication management? Yes Reason for Referral Schizophrenia Reason for Visit * Reason Comments Acute Pt here for issue wi th diarrhea and also asking about [place] levels. Has Hx of IBS and now has some issues, he needs to see new Psych doctor as he stopped seeing his. Encounter Details Date Type Department Care Team (Latest Contact Info) Description 01/07/2024 9:00 AM EDT Office Visit Family Practice [facility] [address] [place] [id number] Ana Uribe DO [address] [place] [id number] Schizoaffective disorder, depressive type (HCC)*; Change in bowel habit Allergies Active Allergy Reactions Criticality Noted Date Comments Amphetamine-Dextroamphetam ine 04/18/2021 Urine screening toxicology inconsistent with medical therapy. Not appropriate for refill of stimulant medication for ADD Sulfa Antibiotics 05/31/1999 rash and mouth ulcers Sulfites 10/30/2006 Dried apricots,trail mix documented as of this encounter (statuses as of 01/07/2024) Medications Medication Sig Dispensed Refills Start Date End Date Status [place] Carbonate 150 MG Oral Capsule (Eskalith)Indica tions:Schizoaffe ctive disorder, depressive type (HCC) Take 1 Capsule by mouth in the morning and 1 Capsule at noon and 1 Capsule in the evening. Take with meals. 90 Capsule 0 01/07/2024 Active buPROPion HCl ER (SR) 100 MG Oral Tablet Extended Release 12 Hour (Wellbutrin SR) Take 1 Tablet by mouth in the morning. 0 4 Discontinued Lurasidone HCl 40 MG Oral Tablet Take by mouth daily . 0 4 Discontinued [place] Carbonate 150 MG Oral Capsule (Eskalith) Take 1 Capsule by mouth in the morning and 1 Capsule at noon and 1 Capsule in the evening. Take with meals. 0 4 Discontinued(Ref ill) traZODone HCl 100 MG Oral Tablet (Desyrel) take 1 AND 1/2 tablets by mouth at bedtime if needed 0 07/22/2023 4 Discontinued Azithromycin 250 MG Oral Tablet (Zithromax Z-Rancho)Indication s:Acute sinusitis, recurrence not specified, unspecified location Take two tablets by mouth on first day, then 1 tablet daily until gone 6 Tablet 0 10/22/2023 4 Discontinued(End of Procedure) Molnupiravir 200 MG Oral CapsuleIndicatio ns:COVID-19 virus infection Take 4 Capsules by mouth in the morning and 4 Capsules before bedtime. 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 documented as of this encounter (statuses as of 01/07/2024) Resolved Problems Problem Noted Date Diagnosed Date Resolved Date Schizoaffective disorder, depressive type 08/06/2023 10/22/2023 Food insecurity 05/02/2021 05/12/2021 Overview: Per [facility] Protocol Acute bronchitis, complicated 02/05/2012 03/19/2013 Acute atopic conjunctivitis 10/16/2006 03/19/2013 ADVANCE DIRECTIVE INFORMATION 02/23/2006 07/29/2008 Overview: Not applicable Allergic rhinitis 01/01/2003 11/06/2012 Nocturnal enuresis 03/31/2002 8 documented as of this encounter (statuses as of 01/07/2024) Immunizations Name Administration Dates Next Due COVID-19, [...] Sign Reading Time Taken Comments Blood Pressure 112/72 01/07/2024 9:04 AM EDT Pulse 85 01/07/2024 9:04 AM EDT Temperature 36.7 C (98 F) 01/07/2024 9:04 AM EDT Respiratory Rate 16 01/07/2024 9:04 AM EDT Oxygen Saturation - - Inhaled Oxygen Concentration - - Weight 101.2 kg (223 lb) 01/07/2024 9:04 AM EDT Height - - Body Mass Index 29.02 08/06/2023 5:48 PM EST documented in this encounter Progress Notes * Ana Uribe DO - 01/07/2024 9:16 AM EDT Subjective: Nacho Michaels is a 28 year old male. Chief Complaint Patient presents with Acute Pt here for issue with diarrhea and also asking about [place] levels. Has Hx of IBS and now has some issues, he needs to see new Psych doctor as he stopped seeing his. There are no exam notes on file for this visit. HPI: This is a 28 year old male with PMHx as below presents with acute Psych following - on lithium, lurasidone, wellbutrin - schizoaffective disorder, bipolar disorder, OCD Pt states he dropped his psych a few months ago - work life got stressful- got consumed by work. States that he did not get messages for appts - he got mad at them and discontinued care. No longer taking medications. Pt is high risk for suicide at this time. Solange - psychologist from office - was introduced to patient to provide assistance/counseling Has issues with GI - would like checked for celiac. Has had issues for 8 mo. Health Maintenance Due Topic Date Due Pneumococcal Vaccine: Pediatrics (0 to 5 Years) and At-Risk Patients (6 to 64 Years) (1 of 2 - PCV)Never done HIV Screening Never done Hepatitis C Screening Never done GARDASIL-HPV IMMUNIZATION SERIES (3 - Male 3-dose series) 11/13/2017 DTaP,Tdap,and Td Vaccines (7 - Td or Tdap) 10/13/2018 Depression, Most Recent Score >= 10 (will fire each visit until score < 10) 04/05/2021 COVID-19 Vaccine (2022- season) 2023 Patient Active Problem List Diagnosis Code Intermittent [...] 1 Tablet by mouth in the morning. (Patient not taking: Reported on 01/07/2024) Lurasidone HCl 40 MG Oral Tablet Take by mouth daily . (Patient not taking: Reported on 01/07/2024) [place] Carbonate 150 MG Oral Capsule (Eskalith) Take 1 Capsule by mouth in the morning and 1 Capsule at noon and 1 Capsule in the evening. Take with meals. (Patient not taking: Reported on 01/07/2024) traZODone HCl 100 MG Oral Tablet (Desyrel) take 1 AND 1/2 tablets by mouth at bedtime if needed (Patient not taking: Reported on 01/07/2024) Molnupiravir 200 MG Oral Capsule Take 4 Capsules by mouth in the morning and 4 Capsules before bedtime. (Patient not taking: Reported on 01/07/2024) 40 Capsule 0 No current facility-administered medications for this visit. Past Medical History: Diagnosis Date Allergic rhinitis 11/06/2012 Intermittent asthma with reliever use up to twice per week 01/01/2003 2013-no need for inhalers. 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 Not appropriate for refill of stimulant medication for ADD Sulfa Antibiotics rash and mouth ulcers Sulfites Dried apricots,trail mix Family History Problem Relation Age of Onset Hypertension Father Other (low thyroid) Father 39 Thyroid Disorder Grandmother (Maternal) low thyroid Neurological Disorder Mother Heart Disorder Grandfather (Paternal) 62 [facility]- No Past Hx Brother older bro Heart Disorder Uncle (Unspecified) 34 several MIs--in past Family Status Relation Status Fa (Not Specified) MGMA (Not Specified) Mo (Not Specified) PGFA (Not Specified) Bro (Not Specified) UNCLE (Not Specified) Social History Socioeconomic History Marital status: Single Spouse name: Not on file Number of children: Not on file Years of education: Not on file Highest education level: Not on file Occupational History Occupation: [employer] Comment: 11th grade Tobacco Use Smoking status: [...] on file Housing Stability: Not on file Review of Systems: As per HPI all other ROS negative. Wt Readings from Last 3 Encounters: 01/07/24 101.2 kg (223 lb) 08/06/23 107.7 kg (237 lb 8 oz) 10/19/22 95 kg (209 lb 6.4 oz) Results for orders placed or performed in visit on 10/19/22 INFLUENZA A/B RSV SARS-COV2,PCR Result Value Ref Range SARS-CoV-2 (COVID-19) Result Negative Negative Influenza A PCR Result Positive (A) Negative Influenza B PCR Result Negative Negative RSV PCR Result Negative Negative OBJECTIVE: Physical Exam: BP 112/72 | Pulse 85 | Temp 36.7 C (98 F) (Tympanic) | Resp 16 | Wt 101.2 kg (223 lb) | BMI 29.02 kg/m | BSA 2.29 m General: alert, healthy, and no distress Heart: regular rate & rhythm, no murmur, and no gallops Lungs: lungs clear to auscultation Abdomen: abdomen soft, non-tender, normal bowel sounds, and no masses or organomegaly Extremities: no joint deformities, effusion, or inflammation Schizoaffective disorder, depressive type (HCC) (Primary) - LITHIUM LEVEL; Future; Expected date: 01/07/2024 - ADULT/PEDS PSYCHIATRY REFERRAL OP - [place] Carbonate 150 MG Oral Capsule (Eskalith); Take 1 Capsule by mouth in the morning and 1 Capsule at noon and 1 Capsule in the evening. Take with meals. Change in bowel habit - CELIAC DISEASE SEROLOGY REFLEX PANEL; Future; Expected date: 01/07/2024 Ana Uribe DO documented in this encounter Plan of Treatment Scheduled Orders Name Type Priority Associated Diagnoses Orde r Schedule LITHIUM LEVEL Lab Routine Schizoaffective disorder, depressive type (HCC) Expected: 01/07/2024 (Approximate), Expires: 01/06/2025 CELIAC DISEASE SEROLOGY REFLEX PANEL Lab Routine Change in bowel habit Expected: 01/07/2024, Expires: 01/06/2025 Scheduled Referrals Name Type Priority Associated Diagnoses Orde r Schedule ADULT/PEDS PSYCHIATRY REFERRAL OP Referral Within 24 hrs (call dept; emergent) Schizoaffective disorder, depressive type (HCC) Ordered: 01/07/2024 Health Maintenance Due Date Last Done Comments [...] 2023 09/25/2021, 01/31/2021 Influenza Vaccine (FLU shot) (Season Ended) 2024 09/13/2021, 08/21/2017, 06/06/2012, Additional history exists Hepatitis B Completed 1997, 03/25, 1997 MENINGOCOCCAL (MENACTRA/MENVEO) Aged Out 10/13/2008 No longer eligible based on patient's age to complete this topic documented as of this encounter Medical Devices Not on filedocumented as of this encounter Visit Diagnoses Diagnosis Schizoaffective disorder, depressive type (HCC)- Primary Schizoaffective disorder, unspecified condition Change in bowel habit documented in this encounter"
--- NOTE | 2024-01-08 08:16 | History & Physical ---
Date of Service January 08, 2024 Impression / Recommendations Impression Rosalio is a 28 year old man with a history of schizoaffective disorder, OCD, anxiety and polysubstance use who was admitted for worsened depression with SI with multiple plans in the context of increased paranoia and auditory hallucinations. Diagnostically consistent with unspecified psychosis with differential including schizoaffective disorder current depressive episode versus BPAD current depressed episode with psychotic features vs substance- induced (though has not used methamphetamine in a few years, possible that cannabis is contributing to paranoia). He is deemed in need of psychiatric hospitalization for diagnostic clarification, safety and stabilization, medication management and development of further coping skills. Discussed medication treatment options in detail. Discussed risks, benefits and alternatives. Patient would like to start and consented to Peabody for mood stabilization and depression and Abilify for psychosis and mood stabilization. Reviewed side effects including but not limited to: movement (TD, NMS), cardiac (QTc prolongation), and metabolic (stroke, insulin resistance) and necessity for fasting lipid and glucose labwork and AIMS done with score of 0 for abilify and reviewed risks of dehydration, renal, thyroid, cardiac, drug interactions (NSAIDs, ACEIs, angiotensin receptor antagonists) with Peabody use. Baseline labs of thyroid function, kidney function, weight, electrolytes, CBC, and UA were preformed and appropriate to start Peabody, will monitor Na+ as just outside normal range on admission but reports poor intake prior to admission and now is eating well and hydrating. MNPR due to paranoia about others talking about him, cannot tolerate a roommate Overall I spent a total of 82 minutes for this admission including review of chart records, review of labwork, direct evaluation of the patient, counseling the patient, ordering medication, risk assessment, discussion with the psychiatric liason RN and documentation in the electronic health record. (1) Suicidal ideation: (2) Unspecified psychosis not due to a substance or known physiological condition: Plan 01/07/2024: The patient was admitted to the [facility] ([facility]) on q15 min checks (behavioral with suicide precautions) for safety. The patient will participate in group, recreational, and milieu therapies and will be offered additional individual and family sessions as clinically appropriate. -Start Peabody carbonate 300mg HS -Start abilify 5mg HS and 2.5mg BID prn for agitation/paranoia -Fasting lipid panel, glucose and Na+ level in the morning Inventory Assets Strengths: fair insight, willing to get treatment Needs: safety and stabilization, medication adjustment, additional coping skills, increased outpatient services Suicide Risk Level Suicide Risk Level: High-Moderate (q15 min suicide checks) (severe depression with SI with plan and psychosis prior to admission but feels safe in the hospital, able to safety contract and agrees to let nursing/staff know should they develop plan, intent or feel unable to remain safe.) Suicide Risk Level Comments: Risk Factors Assessment Male: Yes : Yes Do You Have Access To A Gun?: No Health Problems: No Mental Health Diagnoses: Yes Substance Use Disorders: No (but in the past and uses cannabis frequently ) Previous Attempt: No Family History of Suicide: No Previous Psychiatric Hospitalization: No Protective Factors Assessment Employed: No Supportive Family: Yes (his dad) Psychiatric History Identifying Data GIOVANI SAN is a 28-year-old M who currently lives in [place] alone, has a history of schizoaffective disorder and LANI, and was admitted on 01/07/24 14:34 on a 201 voluntary commitment for SI with plan of shooting himself as well as increased paranoia. Chief Complaint "My chemistry feels terrible, I don't know what's going on but it's all out of whack". History of Present Illness He presents for psychiatric admission for worsening depression and SI with plan of buying a gun or drinking bleach in the context of multiple psychosocial stressors involving ending his romantic relationship and quitting his job one week ago. He reports multiple symptoms of depression including hopelessness, poor sleep, poor appetite, tearfulness, anhedonia, poor motivation, low energy and SI with a plan and has been researching possible ways to . He reports the schizoaffective disorder was diagnosed a few years ago when he was having auditory hallucinations though he notes he was using methamphetamine at the time. Currently he feels his more prominent symptoms are anxiety especially around people noting he has "hypervigilance" when people are leaving the room and "sometimes what I hear is not all right". He's particularly bothered by distant voices as he feels "they are always about me". Typically the voices are mean but sometimes they can be neutral. He also describes "extreme rumination and OCD". He notes he will call people 7 times in a row and constantly feels that people might be talking about him or are "after me". He is not currently prescribed any psychiatric medications, he discontinued his previous psychiatric medications 5 months ago. Psychiatric ROS notable for history of iveth with increased confidence, high energy, "telling people what to do", "I thought very highly of myself". Past Psychiatric History Current Psychiatric Diagnosis: OCD, Depression, Anxiety, Schizoaffective disorder Outpatient Services: Therapist-Jasmine Gentile [facility] weekly via telehealth Previous Psych Admissions: none Do You Have Access To A Gun?: No History of Previous Suicide Attempt: No Past Medication Trials: Wellbutrin, Peabody, Latuda (caused "extreme boredom"), Lamictal, Prozac (made him feel terrible and states "I hate SSRIs" as they make him feel worse) Past Head Trauma/Neuro History History of Concussion/Seizure: No Allergies Allergy/AdvReac Type Severity Reaction Status Date / Time mold Allergy Unknown ASTHMA Unverified 08/19/17 06:28 FLARES Sulfa (Sulfonamide Allergy Unknown SWELLING/SORES Unverified 08/19/17 06:28 Antibiotics) IN MOUTH Home Medications Medication Instructions Recorded Confirmed Type bupropion HCl 100 mg tablet 100 mg PO DAILY 01/07/24 01/07/24 History lurasidone 40 mg tablet 40 mg PO DAILY 01/07/24 01/07/24 History trazodone 100 mg tablet 100 mg PO HS 01/07/24 01/07/24 History Family History Family History of: Depression, Alcoholism/Drug Abuse and Other-List under Comment Family Mental Health History Comment: OCD Alcohol History Hx of Alcohol Use Over the Past 12 Months: Yes AUDIT Total Score: 5 Started at age 18, regular use at age 21, at age 23 excessive drinking for 2 years. Then stopped drinking. 6 months was using alcohol but then stopped. But then drank again two days ago "so I wouldn't kill myself...it took the edge off". No history of legal consequences. Smoking Use Smoking Status: Never smoker Substance History Hx of Prescription Med Misuse Over the Past 12 Months: No Hx of Over the Counter Med Misuse Over the Past 12 Months: No Hx of Inhalent Misuse Over the Past 12 Months: No Hx of Organic Substance Use Over the Past 12 Months: Yes Hx of Illegal Substances/Street Drug Use Over Past 12 Months: No Problems as a Result of Past Substance Use: None Identified At age 15 started using cannabis. used pretty regularly until age 20. Since age 20 has used "all the time". Smokes, history of dabbing, and uses daily when he has it. Likes that it "takes some things away like depression" but gives him more paranoia and anxiety. History of methamphetamine use two years ago with consistent use for 2-3 months. No use in 2 years. Personal History Living Arrangements: Apartment Childhood: Grew up in [place]. Close with his father. 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) Marital Status: Single ( from his gf a week ago) Number Of Children: n/a Beliefs That Will Affect Care: None Current Legal Problems: No Hx Legal Problems: No Hx Traumatic Life Events: Yes (regarding identifying as being quinones) Patient History Medical History Depression Schizoaffective disorder Social History Smoking Status: Never smoker Preferred Language: Swazi Communication Ability: Effective Weight Trainer Required: No Beliefs That Will Affect Care: None Feels Safe at Home: Yes Gender Identity: Male Assistive Devices: None Review of Systems Review of Systems: All systems reviewed & are unremarkable except as noted in HPI & below Physical Exam Psychiatric: Orientation: alert and oriented x 3 Apperance: appropriately dressed and appropriately groomed Eye Contact: + fair eye contact Motor Behavior: no abnormal motor movements Speech: normal rate/rhythm/volume of speech Affect: + depressed affect and + flat affect Mood: + depressed mood and + anxious mood Thought Process: goal directed thought process Thought Content: + preoccupation, + paranoid and + cognitive distortions Suicidal Thoughts: denies suicidal intent; + reports suicidal thoughts (intermittent thoughts ) and + reports suicidal plan (none for hospital, outside of buying a gun or drinking bleach) Homicidal Thoughts: denies homicidal thoughts Hallucinations: + auditory hallucinations; no visual hallucinations Cognition: recent memory grossly intact, remote memory grossly intact, attention grossly intact and language grossly intact Estimated Intelligence: consistent with education level Insight: + fair insight Judgment: + limited judgement Vital Signs (Past 24 Hours): Last Vital Signs Temp 36.5 C 01/08/24 06:43 Pulse 69 01/08/24 06:44 Resp 16 01/08/24 06:43 BP 112/80 01/08/24 06:44 Pulse Ox 96 01/07/24 16:05 O2 Del Method Room Air 01/07/24 16:05 Exam Statement: A physical exam was performed in the ED by Dr. Cid for the purposes of medical clearance. I accept that physical as correct and adequate for the purposes of the inpatient physical exam. Results & Data ([facility]) Laboratory Results Laboratory Results - last 24 hr 01/07/24 01/07/24 11:10 Unknown WBC 8.77 RBC 5.19 Hgb 15.5 Hct 44.9 MCV 86.5 MCH 29.9 MCHC 34.5 RDW Std Deviation 40.5 RDW Coeff of Samy 13.0 Plt Count 328 MPV 10.8 Immature Gran % (Auto) 0.2 Neut % (Auto) 74.2 Lymph % (Auto) 16.2 Lander % (Auto) 8.4 Eos % (Auto) 0.8 Baso % (Auto) 0.2 Neut # (Auto) 6.50 Lymph # (Auto) 1.42 [place]ander # (Auto) 0.74 H Eos # (Auto) 0.07 Baso # (Auto) 0.02 Immature Gran # (Auto) 0.02 Sodium 135 L Potassium 4.1 Chloride 103 Carbon Dioxide 24 Anion Gap 8 BUN 13 Creatinine 0.83 Est Cr Clr Drug Dosing 194.0 Est GFR ( Amer) 140.7 Est GFR (Non-Af Amer) 121.4 BUN/Creatinine Ratio 15.7 Glucose 90 Calcium 9.1 Total Bilirubin 0.4 AST 17 ALT 17 Alkaline Phosphatase 81 Total Protein 7.7 Albumin 4.4 Globulin 3.3 Albumin/Globulin Ratio 1.3 TSH 0.665 Urine Color Yellow Urine Appearance Clear Urine pH 6.0 Ur Specific [place] 1.009 Urine Protein Negative Urine Glucose (UA) Negative Urine Ketones 1+ H Urine Blood Negative Urine Nitrite Negative Urine Bilirubin Negative Urine Urobilinogen Negative Ur Leukocyte Esterase Negative Salicylates < 3.0 L Urine Opiates Screen Neg Ur Methadone, Qual Neg Acetaminophen < 3 L Urine Barbiturates Neg Ur Phencyclidine (PCP) Neg U Amphetamin/Meth Scrn Neg Urine MDEA Pending MDMA (Ecstasy) Screen Pos H MDMA Pending Urine MDMA Pending U Benzodiazepines Scrn Neg Ur Cocaine Metabolite Neg U Marijuana (THC) Screen Pos H U Marijuana THC Carboxy Pending Drug Screen Comment Pending Ethyl Alcohol mg/dL < 10.0 SARS-CoV-2, RNA, NAAT NEGATIVE Current Inpatient Medications Current Inpatient Medications: Current Inpatient Medications Acetaminophen (Acetaminophen 325 Mg Tab) 650 mg PO Q4H PRN PRN Reason: Headache or Minor Fever Stop: 02/06/24 14:32 Al Hydrox/Mg Hydrox/Simethicone (Aluminum/Magnesium Susp 30 Ml Udc) 30 ml PO Q4H PRN PRN Reason: GI Upset Stop: 02/06/24 14:32 Bismuth Subsalicylate (Bismuth Subsalicylate Liqd 236 Ml) 15 ml PO PRN PRN PRN Reason: Loose Stool Stop: 02/06/24 14:32 Hydroxyzine HCl (Hydroxyzine Hcl 25 Mg Tab) 50 mg PO HSZ PRN PRN Reason: Insomnia Stop: 02/06/24 14:32 Last Admin: 01/07/24 23:23 Dose: 50 mg Hydroxyzine HCl (Hydroxyzine Hcl 25 Mg Tab) 25 mg PO Q4H PRN PRN Reason: Anxiety Stop: 02/06/24 14:32 Magnesium Hydroxide (Magnesium Hydroxide Susp 30 Ml Udc) 30 ml PO DAILY PRN PRN Reason: Constipation Stop: 02/06/24 14:32 Miscellaneous (Remove Nicoderm Patch) 1 each N/A DAILY@0859 [facility] Stop: 02/07/24 08:58 Nicotine (Nicotine 21 Mg/24 Hr Tdsy) 21 mg TD QAM [facility] Stop: 02/06/24 14:44 Last Admin: 01/07/24 18:59 Dose: Not Given Nicotine Polacrilex (Nicotine Polacrilex 2 Mg Gum) 1 piece MT PRN PRN PRN Reason: Nicotine Withdrawal Symptoms Stop: 02/06/24 14:32 Sodium Chloride (Sodium Chloride 0.65% Na Soln 45 Ml ([place])) 1 - 2 sprays NA PRN PRN PRN Reason: Nasal Dryness/Congestion Stop: 02/06/24 14:32
[2024-01-08] MEDS ORDERED: ARIPiprazole 5 MG TAB PO PRN (10:43)
[2024-01-08] MEDS: LITHIUM CARBONATE 300 MG TAB PO SCH (21:02)
[2024-01-08] MEDS: ARIPiprazole 5 MG TAB PO SCH (21:18)
[2024-01-08] MEDS: hydrOXYzine HCl 25 MG TAB PO PRN (22:05)
[2024-01-09 08:21] LABS: Chol HDL Ratio 3.5 (0-5)
--- NOTE | 2024-01-09 09:15 | Psychiatric Progress Note ---
Date of Service January 09, 2024 Impression / Recommendations Impression Rosalio is a 28 year old man with a history of schizoaffective disorder, OCD, anxiety and polysubstance use who was admitted for worsened depression with SI with multiple plans in the context of increased paranoia and auditory hallucinations. Diagnostically consistent with unspecified psychosis with differential including schizoaffective disorder current depressive episode versus BPAD current depressed episode with psychotic features vs substance- induced (though has not used methamphetamine in a few years, possible that cannabis is contributing to paranoia). He is deemed in need of psychiatric hospitalization for diagnostic clarification, safety and stabilization, medication management and development of further coping skills. MNPR due to paranoia about others talking about him, cannot tolerate a roommate 01/09/2024: Ongoing depression with SI and paranoia and delusions. Did not sleep well again and he still is experiencing significant paranoia so he consents to switching from abilify to olanzapine. Fasting lipid panel and glucose reviewed and within normal limits. Sodium now normal. Overall, I spent a total of 36 minutes on this case including meeting with the patient, reviewing the chart, nursing report, multidisciplinary team meeting, orders, and documentation. (1) Suicidal ideation: (2) Unspecified psychosis not due to a substance or known physiological condition: Plan 01/09/2024: -Continue [place] -Stop Abilify -Start olanzapine 5mg HS and 2.5mg BID prn for paranoia 01/08/2024: The patient was admitted to the [facility] ([facility]) on q15 min checks (behavioral with suicide precautions) for safety. The patient will participate in group, recreational, and milieu therapies and will be offered additional individual and family sessions as clinically appropriate. -Start [place] carbonate 300mg HS -Start abilify 5mg HS and 2.5mg BID prn for agitation/paranoia -Fasting lipid panel, glucose and Na+ level in the morning Inventory Assets Strengths: fair insight, willing to get treatment Needs: safety and stabilization, medication adjustment, additional coping skills, increased outpatient services Suicide Risk Level Suicide Risk Level: High-Moderate (q15 min suicide checks) (severe depression with SI with plan and psychosis prior to admission but feels safe in the hospital, able to safety contract and agrees to let nursing/staff know should they develop plan, intent or feel unable to remain safe.) Suicide Risk Level Comments: Risk Factors Assessment Male: Yes : Yes Do You Have Access To A Gun?: No Health Problems: No Mental Health Diagnoses: Yes Substance Use Disorders: No (but in the past and uses cannabis frequently ) Previous Attempt: No Family History of Suicide: No Previous Psychiatric Hospitalization: No Protective Factors Assessment Employed: No Supportive Family: Yes (his dad) Interval History Identifying Information GIOVANI SAN is a 28-year-old M who currently lives in [place] alone, has a history of schizoaffective disorder and LANI, and was admitted on 01/07/24 14:34 on a 201 voluntary commitment for SI with plan of shooting himself as well as increased paranoia. Chief Complaint "I feel like I have a lot of adrenaline". Review of Systems Sleep Information Total Hours of Sleep: 6.5 Sleep Comments: Meal Information Percent Meal Consumed - Breakfast: 0 Percent Meal Consumed - Lunch: 100 Percent Meal Consumed - Dinner: 100 Subjective Subjective Patient was seen & assessed and interval progress reviewed with treatment team nursing and social work. Attending some groups. Still having paranoia. This morning reported hearing voices. His dad visited last evening. Today he reports feeling stressed and experiencing an acute sensation of adrenaline. He struggled to sleep last night. He denies any side effects since starting lithium and Abilify but doesn't feel like the abilify helped at all with his paranoia. He's bothered by thoughts about why he quit work/got fired, leading to a confusing situation in his life. He also reports having thoughts of suicide earlier in the day but notes that his mood improved later on. Physical Exam Psychiatric Orientation: alert and oriented x 3 Apperance: appropriately dressed and appropriately groomed Eye Contact: + fair eye contact Motor Behavior: no abnormal motor movements Speech: normal rate/rhythm/volume of speech Affect: + depressed affect and + flat affect Mood: + depressed mood and + anxious mood Thought Process: goal directed thought process Thought Content: + preoccupation, + paranoid, + cognitive distortions and + guilt Suicidal Thoughts: denies suicidal intent; + reports suicidal thoughts (intermittent thoughts ) and + reports suicidal plan (none for hospital, outside of buying a gun or drinking bleach) Homicidal Thoughts: denies homicidal thoughts Hallucinations: + auditory hallucinations; no visual hallucinations Cognition: recent memory grossly intact, remote memory grossly intact, attention grossly intact and language grossly intact Estimated Intelligence: consistent with education level Insight: + fair insight Judgment: + limited judgement Vital Signs (Past 24 Hours) Last Vital Signs Temp 36.5 C 01/09/24 06:31 Pulse 82 01/09/24 06:31 Resp 16 01/09/24 06:31 BP 130/76 01/09/24 06:31 Pulse Ox 96 01/07/24 16:05 O2 Del Method Room Air 01/07/24 16:05 Results & Data ([facility]) Laboratory Results Laboratory Results - last 24 hr 01/09/24 07:41 Sodium 139 Fasting Glucose 91 Triglycerides 129 Cholesterol 170 LDL Cholesterol, Calc 95 VLDL Cholesterol, Calc 26 HDL Cholesterol 49 Cholesterol/HDL Ratio 3.5 Current Inpatient Medications Current Inpatient Medications: Current Inpatient Medications Acetaminophen (Acetaminophen 325 Mg Tab) 650 mg PO Q4H PRN PRN Reason: Headache or Minor Fever Stop: 02/06/24 14:32 Al Hydrox/Mg Hydrox/Simethicone (Aluminum/Magnesium Susp 30 Ml Udc) 30 ml PO Q4H PRN PRN Reason: GI Upset Stop: 02/06/24 14:32 Aripiprazole (Aripiprazole 5 Mg Tab) 5 mg PO HS MARJORIE Stop: 02/07/24 21:59 Last Admin: 01/08/24 21:18 Dose: 5 mg Aripiprazole (Aripiprazole 5 Mg Tab) 2.5 mg PO BID PRN PRN Reason: Agitation/paranoia Stop: 02/07/24 20:59 Bismuth Subsalicylate (Bismuth Subsalicylate Liqd 236 Ml) 15 ml PO PRN PRN PRN Reason: Loose Stool Stop: 02/06/24 14:32 Hydroxyzine HCl (Hydroxyzine Hcl 25 Mg Tab) 50 mg PO HSZ PRN PRN Reason: Insomnia Stop: 02/06/24 14:32 Last Admin: 01/08/24 21:05 Dose: 50 mg Hydroxyzine HCl (Hydroxyzine Hcl 25 Mg Tab) 25 mg PO Q4H PRN PRN Reason: Anxiety Stop: 02/06/24 14:32 Last Admin: 01/08/24 22:05 Dose: 25 mg [place] Carbonate ([place] Carbonate 300 Mg Tab) 300 mg PO HS MARJORIE Stop: 02/07/24 21:59 Last Admin: 01/08/24 21:02 Dose: 300 mg Magnesium Hydroxide (Magnesium Hydroxide Susp 30 Ml Udc) 30 ml PO DAILY PRN PRN Reason: Constipation Stop: 02/06/24 14:32 Miscellaneous (Remove Nicoderm Patch) 1 each N/A DAILY@0859 [facility] Stop: 02/07/24 08:58 Last Admin: 01/08/24 10:21 Dose: Not Given Nicotine (Nicotine 21 Mg/24 Hr Tdsy) 21 mg TD QAM [facility] Stop: 02/06/24 14:44 Last Admin: 01/08/24 10:21 Dose: Not Given Nicotine Polacrilex (Nicotine Polacrilex 2 Mg Gum) 1 piece MT PRN PRN PRN Reason: Nicotine Withdrawal Symptoms Stop: 02/06/24 14:32 Sodium Chloride (Sodium Chloride 0.65% Na Soln 45 Ml ([place])) 1 - 2 sprays NA PRN PRN PRN Reason: Nasal Dryness/Congestion Stop: 02/06/24 14:32 Mental Health & Subst Abuse Tx Psychiatrist Name of Psychiatrist: Billy Guillen (1.5 hour appointment for intake) Psychiatrist's Date Of Appointment With Psychiatric Provider: 01/14/24Sunday Time of Appointment with Psychiatrist: 2:15pm Psychiatric Appointment Comment: Please arrive 15 minutes early with photo ID & insurance card Therapist Name of Therapist: [facility]- Jasmine Gentile Post Discharge Appointments Primary Care Physician Name Of Family Doctor/PCP: None per patient
[2024-01-09] MEDS: OLANZapine 5 MG TABLET PO SCH (20:09)
[2024-01-10] MEDS: NICOTINE 21 MG/24 HR TDSY TD SCH (08:54)
--- NOTE | 2024-01-10 09:18 | Psychiatric Progress Note ---
Date of Service January 10, 2024 Impression / Recommendations Impression Rosalio is a 28 year old man with a history of schizoaffective disorder, OCD, anxiety and polysubstance use who was admitted for worsened depression with SI with multiple plans in the context of increased paranoia and auditory hallucinations. Diagnostically consistent with unspecified psychosis with differential including schizoaffective disorder current depressive episode versus BPAD current depressed episode with psychotic features vs substance- induced (though has not used methamphetamine in a few years, possible that cannabis is contributing to paranoia). He is deemed in need of psychiatric hospitalization for diagnostic clarification, safety and stabilization, medication management and development of further coping skills. MNPR due to paranoia about others talking about him, cannot tolerate a roommate 01/10/2024: Increased thought broadcasting and paranoia today with ongoing anxiety that he may be upsetting or harming others and that others talking is directly related to and about him. He did sleep better with the olanzapine but doesn't wish to increase the dose at this time. He does want to titrate the [place] and denies any medication side effects. He requests to have [place] titration go to twice daily as he previously took it this way and found it helpful. Overall, I spent a total of 38 minutes on this case including meeting with the patient, reviewing the chart, nursing report, multidisciplinary team meeting, orders, and documentation. (1) Suicidal ideation: (2) Unspecified psychosis not due to a substance or known physiological condition: Plan 01/10/2024: -Increase [place] 300mg BID -Continue olanzapine 5mg HS with 2.5mg BID prn for paranoia 01/09/2024: -Continue [place] -Stop Abilify -Start olanzapine 5mg HS and 2.5mg BID prn for paranoia 01/08/2024: The patient was admitted to the [facility] ([facility] health unit) on q15 min checks (behavioral with suicide precautions) for safety. The patient derek l participate in group, recreational, and milieu therapies and will be offered additional individual and family sessions as clinically appropriate. -Start [place] carbonate 300mg HS -Start abilify 5mg HS and 2.5mg BID prn for agitation/paranoia -Fasting lipid panel, glucose and Na+ level in the morning Inventory Assets Strengths: fair insight, willing to get treatment Needs: safety and stabilization, medication adjustment, additional coping skills, increased outpatient services Suicide Risk Level Suicide Risk Level: Moderate (q15 min suicide checks) (severe depression with SI with plan and psychosis prior to admission but depression lessens and feels safe in the hospital, able to safety contract and agrees to let nursing/staff know should they develop plan, intent or feel unable to remain safe.) Suicide Risk Level Comments: Risk Factors Assessment Male: Yes : Yes Do You Have Access To A Gun?: No Health Problems: No Mental Health Diagnoses: Yes Substance Use Disorders: No (but in the past and uses cannabis frequently ) Previous Attempt: No Family History of Suicide: No Previous Psychiatric Hospitalization: No Protective Factors Assessment Employed: No Supportive Family: Yes (his dad) Interval History Identifying Information GIOVANI SAN is a 28-year-old M who currently lives in [place] alone, has a history of schizoaffective disorder and LANI, and was admitted on 01/07/24 14:34 on a 201 voluntary commitment for SI with plan of shooting himself as well as increased paranoia. Chief Complaint "Do you think I'm scary?". Review of Systems Sleep Information Total Hours of Sleep: 8.25 Meal Information Percent Meal Consumed - Breakfast: 100 Percent Meal Consumed - Lunch: 90 Percent Meal Consumed - Dinner: 50 Subjective Subjective Patient was seen & assessed and interval progress reviewed with treatment team nursing and social work. Throughout the day yesterday asked at nurses station if people were talking about him. Seems to be thought blocked at times. He's been misinterpreting things in the groups. Today expressed fears that staff thought he was manipulating people. Asked me if he was scary or "I'm worried I was causing trouble". Required reassurance that a unit counselor's absence today was not caused by him "making him mad". He liked the olanzapine trial last night with improved sleep and feels his depression is less intense today. Still very worried about how he may be harming others unintentionally or upsetting others and still thinking others are talking about him. He's finding that using white noise on his headphones helps with this. Physical Exam Psychiatric Orientation: alert and oriented x 3 Apperance: appropriately dressed and appropriately groomed Eye Contact: + fair eye contact Motor Behavior: no abnormal motor movements Speech: normal rate/rhythm/volume of speech Affect: + anxious affect Mood: + depressed mood and + anxious mood Thought Process: + circumstantial thought process and + perseveration Thought Content: + preoccupation, + paranoid, + cognitive distortions, + thought broadcasting, + persecution and + guilt Suicidal Thoughts: denies suicidal intent; + reports suicidal thoughts (intermittent thoughts ) and + reports suicidal plan (none for hospital, outside of buying a gun or drinking bleach) Homicidal Thoughts: denies homicidal thoughts Hallucinations: + auditory hallucinations; no visual hallucinations Cognition: recent memory grossly intact, remote memory grossly intact, attention grossly intact and language grossly intact Estimated Intelligence: consistent with education level Insight: + limited insight Judgment: + limited judgement Vital Signs (Past 24 Hours) Last Vital Signs Temp 36.6 C 01/10/24 06:25 Pulse 76 01/10/24 06:26 Resp 16 01/10/24 06:25 BP 117/73 01/10/24 06:26 Pulse Ox 97 01/10/24 06:25 O2 Del Method Room Air 01/10/24 06:25 Results & Data ([facility]) Current Inpatient Medications Current Inpatient Medications: Current Inpatient Medications Acetaminophen (Acetaminophen 325 Mg Tab) 650 mg PO Q4H PRN PRN Reason: Headache or Minor Fever Stop: 02/06/24 14:32 Al Hydrox/Mg Hydrox/Simethicone (Aluminum/Magnesium Susp 30 Ml Udc) 30 ml PO Q4H PRN PRN Reason: GI Upset Stop: 02/06/24 14:32 Bismuth Subsalicylate (Bismuth Subsalicylate Liqd 236 Ml) 15 ml PO PRN PRN PRN Reason: Loose Stool Stop: 02/06/24 14:32 Hydroxyzine HCl (Hydroxyzine Hcl 25 Mg Tab) 50 mg PO HSZ PRN PRN Reason: Insomnia Stop: 02/06/24 14:32 Last Admin: 01/08/24 21:05 Dose: 50 mg Hydroxyzine HCl (Hydroxyzine Hcl 25 Mg Tab) 25 mg PO Q4H PRN PRN Reason: Anxiety Stop: 02/06/24 14:32 Last Admin: 01/08/24 22:05 Dose: 25 mg [place] Carbonate ([place] Carbonate 300 Mg Tab) 300 mg PO HS MARJORIE Stop: 02/07/24 21:59 Last Admin: 01/09/24 20:09 Dose: 300 mg Magnesium Hydroxide (Magnesium Hydroxide Susp 30 Ml Udc) 30 ml PO DAILY PRN PRN Reason: Constipation Stop: 02/06/24 14:32 Miscellaneous (Remove Nicoderm Patch) 1 each N/A DAILY@0859 [facility] Stop: 02/07/24 08:58 Last Admin: 01/10/24 08:54 Dose: Not Given Nicotine (Nicotine 21 Mg/24 Hr Tdsy) 1 patch TD QAM [facility] Stop: 02/09/24 08:59 Last Admin: 01/10/24 08:54 Dose: Not Given Nicotine Polacrilex (Nicotine Polacrilex 2 Mg Gum) 1 piece MT PRN PRN PRN Reason: Nicotine Withdrawal Symptoms Stop: 02/06/24 14:32 Olanzapine (Olanzapine 5 Mg Tablet) 5 mg PO HS [facility] Stop: 02/08/24 21:59 Last Admin: 01/09/24 20:09 Dose: 5 mg Olanzapine (Olanzapine 2.5 Mg Tab) 2.5 mg PO BID PRN PRN Reason: Agitation/paranoia Stop: 02/08/24 20:59 Sodium Chloride (Sodium Chloride 0.65% Na Soln 45 Ml ([place])) 1 - 2 sprays NA PRN PRN PRN Reason: Nasal Dryness/Congestion Stop: 02/06/24 14:32 Mental Health & Subst Abuse Tx Psychiatrist Name of Psychiatrist: Billy Guillen (1.5 hour appointment for intake) Psychiatrist's Date Of Appointment With Psychiatric Provider: 01/14/24Sunday Time of Appointment with Psychiatrist: 2:15pm Psychiatric Appointment Comment: Please arrive 15 minutes early with photo ID & insurance card Therapist Name of Therapist: [facility]- Jasmine Gentile Post Discharge Appointments Primary Care Physician Name Of Family Doctor/PCP: None per patient
[2024-01-10 18:57] LABS: MDA negative; MDEA negative; MDMA (Ecstasy) Urine, Confirm negative; Marijuana Quant, GCMS Urine 52 ng/mL (<5)
[2024-01-10] MEDS: LITHIUM CARBONATE 300 MG TAB PO SCH (20:32)
--- NOTE | 2024-01-11 09:12 | Psychiatric Progress Note ---
Date of Service January 11, 2024 Impression / Recommendations Impression Rosalio is a 28 year old man with a history of schizoaffective disorder, OCD, anxiety and polysubstance use who was admitted for worsened depression with SI with multiple plans in the context of increased paranoia and auditory hallucinations. Diagnostically consistent with unspecified psychosis with differential including schizoaffective disorder current depressive episode versus BPAD current depressed episode with psychotic features vs substance- induced (though has not used methamphetamine in a few years, possible that cannabis is contributing to paranoia). He is deemed in need of psychiatric hospitalization for diagnostic clarification, safety and stabilization, medication management and development of further coping skills. MNPR due to paranoia about others talking about him, cannot tolerate a roommate 01/11/2024: Ongoing paranoia, delusions, evidence of thought blocking and responding to internal stimuli all consistent with ongoing psychosis. He consents to further titration of olanzapine. Tolerating medications well. Overall, I spent a total of 36 minutes on this case including meeting with the patient, reviewing the chart, nursing report, multidisciplinary team meeting, orders, and documentation. (1) Suicidal ideation: (2) Unspecified psychosis not due to a substance or known physiological condition: Plan 01/11/2024: -Continue [place] 300mg BID -Increase olanzapine to 10mg HS 01/10/2024: -Increase [place] 300mg BID -Continue olanzapine 5mg HS with 2.5mg BID prn for paranoia 01/09/2024: -Continue [place] -Stop Abilify -Start olanzapine 5mg HS and 2.5mg BID prn for paranoia 01/08/2024: The patient was admitted to the [facility] ([facility] mental health unit) on q15 min checks (behavioral with suicide precautions) for safety. The patient will participate in group, recreational, and milieu therapies and will be offered additional individual and family sessions as clinically appropriate. -Start [place] carbonate 300mg HS -Start abilify 5mg HS and 2.5mg BID prn for agitation/paranoia -Fasting lipid panel, glucose and Na+ level in the morning Inventory Assets Strengths: fair insight, willing to get treatment Needs: safety and stabilization, medication adjustment, additional coping skills, increased outpatient services Suicide Risk Level Suicide Risk Level: Moderate (q15 min suicide checks) (severe depression with SI with plan and psychosis prior to admission but depression lessens and feels safe in the hospital, able to safety contract and agrees to let nursing/staff know should they develop plan, intent or feel unable to remain safe.) Suicide Risk Level Comments: Risk Factors Assessment Male: Yes : Yes Do You Have Access To A Gun?: No Health Problems: No Mental Health Diagnoses: Yes Substance Use Disorders: No (but in the past and uses cannabis frequently ) Previous Attempt: No Family History of Suicide: No Previous Psychiatric Hospitalization: No Protective Factors Assessment Employed: No Supportive Family: Yes (his dad) Interval History Identifying Information GIOVANI SAN is a 28-year-old M who currently lives in [place] alone, has a history of schizoaffective disorder and LANI, and was admitted on 01/07/24 14:34 on a 201 voluntary commitment for SI with plan of shooting himself as well as increased paranoia. Chief Complaint "I don't think people like me". Review of Systems Sleep Information Total Hours of Sleep: 8.15 Meal Information Percent Meal Consumed - Breakfast: 100 Percent Meal Consumed - Lunch: 100 Percent Meal Consumed - Dinner: 100 Subjective Subjective Patient was seen & assessed and interval progress reviewed with treatment team nursing and social work. Going to groups, still thinks people are talking about him. Continues to feel he is upsetting people or doing something wrong. Distracted by suspected internal stimuli at one point during our conversation. Asks me if he's "causing trouble" and reports he thinks people are whispering that he is faking his symptoms. Met with his new manager case management. Denies any medication side effects, likes that he is sleeping better with olanzapine. Physical Exam Psychiatric Orientation: alert and oriented x 3 Apperance: appropriately dressed and appropriately groomed Eye Contact: + fair eye contact Motor Behavior: no abnormal motor movements Speech: normal rate/rhythm/volume of speech Affect: + anxious affect Mood: + depressed mood and + anxious mood Thought Process: + circumstantial thought process and + perseveration Thought Content: + preoccupation, + paranoid, + cognitive distortions, + thought broadcasting, + persecution and + guilt Suicidal Thoughts: denies suicidal intent; + reports suicidal thoughts (intermittent thoughts ) and + reports suicidal plan (none for hospital, outside of buying a gun or drinking bleach) Homicidal Thoughts: denies homicidal thoughts Hallucinations: + auditory hallucinations; no visual hallucinations Cognition: recent memory grossly intact, remote memory grossly intact, attention grossly intact and language grossly intact Estimated Intelligence: consistent with education level Insight: + limited insight Judgment: + limited judgement Vital Signs (Past 24 Hours) Last Vital Signs Temp 35.3 C L 01/11/24 06:00 Pulse 79 01/11/24 06:37 Resp 16 01/11/24 06:00 BP 127/85 01/11/24 06:37 Pulse Ox 97 01/10/24 06:25 O2 Del Method Room Air 01/10/24 06:25 Results & Data ([facility]) Laboratory Results Laboratory Results - last 24 hr 01/07/24 Unknown Urine MDEA negative MDMA negative Urine MDMA negative U Marijuana THC Carboxy 52 H Drug Screen Comment SEE NOTE Current Inpatient Medications Current Inpatient Medications: Current Inpatient Medications Acetaminophen (Acetaminophen 325 Mg Tab) 650 mg PO Q4H PRN PRN Reason: Headache or Minor Fever Stop: 02/06/24 14:32 Al Hydrox/Mg Hydrox/Simethicone (Aluminum/Magnesium Susp 30 Ml Udc) 30 ml PO Q4H PRN PRN Reason: GI Upset Stop: 02/06/24 14:32 Bismuth Subsalicylate (Bismuth Subsalicylate Liqd 236 Ml) 15 ml PO PRN PRN PRN Reason: Loose Stool Stop: 02/06/24 14:32 Hydroxyzine HCl (Hydroxyzine Hcl 25 Mg Tab) 50 mg PO HSZ PRN PRN Reason: Insomnia Stop: 02/06/24 14:32 Last Admin: 01/08/24 21:05 Dose: 50 mg Hydroxyzine HCl (Hydroxyzine Hcl 25 Mg Tab) 25 mg PO Q4H PRN PRN Reason: Anxiety Stop: 02/06/24 14:32 Last Admin: 01/08/24 22:05 Dose: 25 mg [place] Carbonate ([place] Carbonate 300 Mg Tab) 300 mg PO BID MARJORIE Stop: 02/09/24 20:59 Last Admin: 01/11/24 08:58 Dose: 300 mg Magnesium Hydroxide (Magnesium Hydroxide Susp 30 Ml Udc) 30 ml PO DAILY PRN PRN Reason: Constipation Stop: 02/06/24 14:32 Olanzapine (Olanzapine 5 Mg Tablet) 5 mg PO HS MARJORIE Stop: 02/08/24 21:59 Last Admin: 01/10/24 20:33 Dose: 5 mg Olanzapine (Olanzapine 2.5 Mg Tab) 2.5 mg PO BID PRN PRN Reason: Agitation/paranoia Stop: 02/08/24 20:59 Sodium Chloride (Sodium Chloride 0.65% Na Soln 45 Ml ([place])) 1 - 2 sprays NA PRN PRN PRN Reason: Nasal Dryness/Congestion Stop: 02/06/24 14:32 Mental Health & Subst Abuse Tx Psychiatrist Name of Psychiatrist: Billy Guillen (1.5 hour appointment for intake) Psychiatrist's Date Of Appointment With Psychiatric Provider: 01/18/24Sunday Time of Appointment with Psychiatrist: 2:15pm Psychiatric Appointment Comment: Please arrive 15 minutes early with photo ID & insurance card Therapist Name of Therapist: [facility]- Jasmine Gentile Post Discharge Appointments Primary Care Physician Name Of Family Doctor/PCP: None per patient
[2024-01-11] MEDS: OLANZAPINE 2.5 MG TAB PO PRN (10:02)
[2024-01-11] MEDS: OLANZapine 10 MG TAB PO SCH (20:33)
--- NOTE | 2024-01-12 13:53 | Psychiatric Progress Note ---
Date of Service January 12, 2024 Impression / Recommendations Impression Rosalio is a 28 year old man with a history of schizoaffective disorder, OCD, anxiety and polysubstance use who was admitted for worsened depression with SI with multiple plans in the context of increased paranoia and auditory hallucinations. He is responding well to treatment; however, in the last two days has developed symptoms that require further monitoring. Inpatient hospitalization is medically necessary for ongoing monitoring and safety. Overall, I spent a total of 36 minutes on this case including meeting with the patient, reviewing the chart, nursing report, orders, and documentation. (1) Unspecified psychosis not due to a substance or known physiological condition: (2) Depression: (3) Suicidal ideation: Plan 01/12/2024: -Continue lithium 300 mg twice daily -Continue olanzapine 10 mg at bedtime -Continue monitoring mood and sleep pattern -Repeat UA, Monitor urinary tract symptoms 01/11/2024: -Continue [place] 300mg BID -Increase olanzapine to 10mg HS 01/10/2024: -Increase [place] 300mg BID -Continue olanzapine 5mg HS with 2.5mg BID prn for paranoia 01/09/2024: -Continue [place] -Stop Abilify -Start olanzapine 5mg HS and 2.5mg BID prn for paranoia 01/08/2024: The patient was admitted to the [facility] ([facility] mental health unit) on q15 min checks (behavioral with suicide precautions) for safety. The patient will participate in group, recreational, and milieu therapies and will be offered additional individual and family sessions as clinically appropriate. -Start [place] carbonate 300mg HS -Start abilify 5mg HS and 2.5mg BID prn for agitation/paranoia -Fasting lipid panel, glucose and Na+ level in the morning Inventory Assets Strengths: fair insight, willing to get treatment Needs: safety and stabilization, medication adjustment, additional coping skills, increased outpatient services Suicide Risk Level Suicide Risk Level: Moderate (q15 min suicide checks) (severe depression with SI with plan and psychosis prior to admission but depression lessens and feels safe in the hospital, able to safety contract and agrees to let nursing/staff know should they develop plan, intent or feel unable to remain safe.) Suicide Risk Level Comments: Risk Factors Assessment Male: Yes : Yes Do You Have Access To A Gun?: No Health Problems: No Mental Health Diagnoses: Yes Substance Use Disorders: No (but in the past and uses cannabis frequently ) Previous Attempt: No Family History of Suicide: No Previous Psychiatric Hospitalization: No Protective Factors Assessment Employed: No Supportive Family: Yes (his dad) Interval History Identifying Information GIOVANI SAN is a 28-year-old M who currently lives in [place] alone, has a history of schizoaffective disorder and LANI, and was admitted on 01/07/24 14:34 on a 201 voluntary commitment for SI with plan of shooting himself as well as increased paranoia. Chief Complaint "I am having problems to urinate" Review of Systems Notes Constitutional: Denied fatigue, denied fever Cardiovascular: Denies chest pain : Reported frequent urination with a sense of incomplete bladder emptying, without dysuria, denied pelvic pain. Sleep Information Total Hours of Sleep: 8 Meal Information Percent Meal Consumed - Breakfast: 90 Percent Meal Consumed - Lunch: 100 Percent Meal Consumed - Dinner: 100 Subjective Subjective Patient was seen & assessed and interval progress reviewed with nursing. I met with Rosalio privately in his room he was laying in bed resting. He denied feeling tired or sedated. Reported his mood is improved. Rosalio indicated that in the past 2 days he has noticed some problems urinating. He described having desire to urinate but having a very small amount of urine. He denied pain during urination or fever. Silvia reported that he has been maintaining good hydration. Rosalio shared that the suicidal ideations he had before have disappeared the medications seem to be helping. He has been on lithium for 3 days. Rosalio denied any cravings for drugs or alcohol. Physical Exam Psychiatric Orientation: alert and oriented x 3 Apperance: appropriately dressed Eye Contact: + fair eye contact Motor Behavior: steady gait and station and no abnormal motor movements Speech: normal rate/rhythm/volume of speech Affect: + anxious affect Mood: + depressed mood and + anxious mood Thought Process: goal directed thought process Thought Content: not paranoid Suicidal Thoughts: denies suicidal thoughts Homicidal Thoughts: denies homicidal thoughts Hallucinations: + auditory hallucinations Cognition: language grossly intact Estimated Intelligence: consistent with education level Insight: + limited insight Judgment: + limited judgement Vital Signs (Past 24 Hours) Last Vital Signs Temp 36.5 C 01/12/24 06:35 Pulse 62 01/12/24 06:35 Resp 16 01/12/24 06:35 BP 121/79 01/12/24 06:35 Pulse Ox 97 01/10/24 06:25 O2 Del Method Room Air 01/10/24 06:25 Results & Data ([facility]) Current Inpatient Medications Current Inpatient Medications: Current Inpatient Medications Acetaminophen (Acetaminophen 325 Mg Tab) 650 mg PO Q4H PRN PRN Reason: Headache or Minor Fever Stop: 02/06/24 14:32 Al Hydrox/Mg Hydrox/Simethicone (Aluminum/Magnesium Susp 30 Ml Udc) 30 ml PO Q4H PRN PRN Reason: GI Upset Stop: 02/06/24 14:32 Bismuth Subsalicylate (Bismuth Subsalicylate Liqd 236 Ml) 15 ml PO PRN PRN PRN Reason: Loose Stool Stop: 02/06/24 14:32 Hydroxyzine HCl (Hydroxyzine Hcl 25 Mg Tab) 50 mg PO HSZ PRN PRN Reason: Insomnia Stop: 02/06/24 14:32 Last Admin: 01/08/24 21:05 Dose: 50 mg Hydroxyzine HCl (Hydroxyzine Hcl 25 Mg Tab) 25 mg PO Q4H PRN PRN Reason: Anxiety Stop: 02/06/24 14:32 Last Admin: 01/08/24 22:05 Dose: 25 mg [place] Carbonate ([place] Carbonate 300 Mg Tab) 300 mg PO BID MARJORIE Stop: 02/09/24 20:59 Last Admin: 01/12/24 08:55 Dose: 300 mg Magnesium Hydroxide (Magnesium Hydroxide Susp 30 Ml Udc) 30 ml PO DAILY PRN PRN Reason: Constipation Stop: 02/06/24 14:32 Olanzapine (Olanzapine 2.5 Mg Tab) 2.5 mg PO BID PRN PRN Reason: Agitation/paranoia Stop: 02/08/24 20:59 Last Admin: 01/12/24 08:55 Dose: 2.5 mg Olanzapine (Olanzapine 10 Mg Tab) 10 mg PO HS MARJORIE Stop: 02/10/24 21:59 Last Admin: 01/11/24 20:33 Dose: 10 mg Sodium Chloride (Sodium Chloride 0.65% Na Soln 45 Ml ([place])) 1 - 2 sprays NA PRN PRN PRN Reason: Nasal Dryness/Congestion Stop: 02/06/24 14:32 Mental Health & Subst Abuse Tx Psychiatrist Name of Psychiatrist: Billy Guillen (1.5 hour appointment for intake) Psychiatrist's Date Of Appointment With Psychiatric Provider: 01/18/24Sunday Time of Appointment with Psychiatrist: 2:15pm Psychiatric Appointment Comment: Please arrive 15 minutes early with photo ID & insurance card Therapist Name of Therapist: [facility]- Jasmine Gentile Plastics Bench Mechanic Name of Plastics Bench Mechanic: [facility] - Calvin Hay Date of Appointment with Plastics Bench Mechanic: 01/21/24 Time of Appointment with Plastics Bench Mechanic: 3:00 PM Case Management Appointment Comment: BCM will meet you at your home. Post Discharge Appointments Primary Care Physician Name Of Family Doctor/PCP: None per patient (2) Depression Depression Type: unspecified Qualified Code(s): F32.A - Depression, unspecified
[2024-01-12 14:57] LABS: Appearance Urine Clear (Clear); Bilirubin Urine Negative (Negative); Blood Urine Negative (Negative); Color Urine Yellow; Glucose Urine UA Negative (Negative); Ketones Urine Negative (Negative); Leukocyte Esterase Urine Negative (Negative); Nitrite Urine Negative (Negative); Protein Urine Negative (Negative); Urobilinogen Urine Negative (Negative); pH Urine 7.5 (4.5-7.5)
--- NOTE | 2024-01-13 15:44 | Psychiatric Progress Note ---
Date of Service January 13, 2024 Impression / Recommendations Impression Rosalio is a 28 year old man with a history of schizoaffective disorder, OCD, anxiety and polysubstance. Responding well to treatment. Approaching baseline. Inpatient hospitalization is medically necessary for ongoing monitoring and safety. Discharge planning has been started. May discharge tomorrow. Overall, I spent a total of 25 minutes on this case including meeting with the patient, reviewing the chart, nursing report, orders, and documentation. (1) Unspecified psychosis not due to a substance or known physiological condition: (2) Depression: Plan 01/13/2024: -Continue lithium 300 mg twice daily. It is too early to order a level. Patient educated that if discharged tomorrow, he will need to get Li level with his OP psychiatrist. There is no evidence of toxicity. Educated about maintaining good hydration. -Continue olanzapine 10 mg at bedtime -Continue monitoring mood and sleep pattern 01/12/2024: -Continue lithium 300 mg twice daily -Continue olanzapine 10 mg at bedtime -Continue monitoring mood and sleep pattern -Repeat UA, Monitor urinary tract symptoms 01/11/2024: -Continue [place] 300mg BID -Increase olanzapine to 10mg HS 01/10/2024: -Increase [place] 300mg BID -Continue olanzapine 5mg HS with 2.5mg BID prn for paranoia 01/09/2024: -Continue [place] -Stop Abilify -Start olanzapine 5mg HS and 2.5mg BID prn for paranoia 01/08/2024: The patient was admitted to the [facility] ([facility]) on q15 min checks (behavioral with suicide precautions) for safety. The patient will participate in group, recreational, and milieu therapies and will be offered additional individual and family sessions as clinically appropriate. -Start [place] carbonate 300mg HS -Start abilify 5mg HS and 2.5mg BID prn for agitation/paranoia -Fasting lipid panel, glucose and Na+ level in the morning Inventory Assets Strengths: fair insight, willing to get treatment Needs: safety and stabilization, medication adjustment, additional coping skills, increased outpatient services Suicide Risk Level Suicide Risk Level: Moderate (q15 min suicide checks) (severe depression with SI with plan and psychosis prior to admission but depression lessens and feels safe in the hospital, able to safety contract and agrees to let nursing/staff know should they develop plan, intent or feel unable to remain safe.) Suicide Risk Level Comments: Risk Factors Assessment Male: Yes : Yes Do You Have Access To A Gun?: No Health Problems: No Mental Health Diagnoses: Yes Substance Use Disorders: No (but in the past and uses cannabis frequently ) Previous Attempt: No Family History of Suicide: No Previous Psychiatric Hospitalization: No Protective Factors Assessment Employed: No Supportive Family: Yes (his dad) Interval History Identifying Information GIOVANI SAN is a 28-year-old M who currently lives in [place] alone, has a history of schizoaffective disorder and LANI, and was admitted on 01/07/24 14:34 on a 201 voluntary commitment for SI with plan of shooting himself as well as increased paranoia. Chief Complaint "what is my diagnosis?". Review of Systems Sleep Information Total Hours of Sleep: 6.5 Meal Information Percent Meal Consumed - Breakfast: 50 Percent Meal Consumed - Lunch: 75 Percent Meal Consumed - Dinner: 100 Subjective Subjective Patient was seen & assessed and interval progress reviewed with nursing and social work. Rosalio presented calm and cooperative. He appeared to be more insightful about his condition and his need for treatment. He has questions about his diagnosis. We discussed the multifactorial cause of his recent episode (use of MJ and large amounts of caffeinated drinks, not taking medications, lack of sleep, work stressors, poor diet, rapid weight loss). He indicated that his mother may have Bipolar Disorder. We discussed the risk fro Bipolar spectrum and the impact of stimulants in switching to iveth and psychosis any time. He is tolerating the medications well. Denied side effect. Urinary symptoms disappeared. UA came back WNL. Rosalio received the visit of his father today. Rosalio stated that his father is a good support and will help him get to his appointments after discharge. Physical Exam Psychiatric Orientation: alert and oriented x 3 Apperance: appropriately dressed and appropriately groomed Eye Contact: good eye contact and + fair eye contact Motor Behavior: steady gait and station and no abnormal motor movements Speech: normal rate/rhythm/volume of speech Affect: euthymic affect Mood: no depressed mood Thought Process: goal directed thought process, + circumstantial thought process and + perseveration Thought Content: + preoccupation and + ideas of reference Suicidal Thoughts: denies suicidal thoughts Homicidal Thoughts: denies homicidal thoughts Hallucinations: no auditory hallucinations Cognition: recent memory grossly intact, remote memory grossly intact, attention grossly intact and language grossly intact Estimated Intelligence: consistent with education level Insight: + fair insight Judgment: + fair judgement Vital Signs (Past 24 Hours) Last Vital Signs Temp 36.6 C 01/13/24 06:36 Pulse 80 01/13/24 06:37 Resp 16 01/13/24 06:36 BP 131/80 01/13/24 06:37 Pulse Ox 97 01/10/24 06:25 O2 Del Method Room Air 01/10/24 06:25 Results & Data ([facility]) Laboratory Results Labs 01/07/24 01/07/24 01/09/24 11:10 Unknown 07:41 WBC 8.77 RBC 5.19 Hgb 15.5 Hct 44.9 MCV 86.5 MCH 29.9 MCHC 34.5 RDW Std Deviation 40.5 RDW Coeff of Samy 13.0 Plt Count 328 MPV 10.8 Immature Gran % (Auto) 0.2 Neut % (Auto) 74.2 Lymph % (Auto) 16.2 Bureau % (Auto) 8.4 Eos % (Auto) 0.8 Baso % (Auto) 0.2 Neut # (Auto) 6.50 Lymph # (Auto) 1.42 Bureau # (Auto) 0.74 H Eos # (Auto) 0.07 Baso # (Auto) 0.02 Immature Gran # (Auto) 0.02 Sodium 135 L 139 Potassium 4.1 Chloride 103 Carbon Dioxide 24 Anion Gap 8 BUN 13 Creatinine 0.83 Est Cr Clr Drug Dosing 194.0 Est GFR ( Amer) 140.7 Est GFR (Non-Af Amer) 121.4 BUN/Creatinine Ratio 15.7 Glucose 90 Fasting Glucose 91 Calcium 9.1 Total Bilirubin 0.4 AST 17 ALT 17 Alkaline Phosphatase 81 Total Protein 7.7 Albumin 4.4 Globulin 3.3 Albumin/Globulin Ratio 1.3 Triglycerides 129 Cholesterol 170 LDL Cholesterol, Calc 95 VLDL Cholesterol, Calc 26 HDL Cholesterol 49 Cholesterol/HDL Ratio 3.5 TSH 0.665 Urine Color Yellow Urine Appearance Clear Urine pH 6.0 Ur Specific [place] 1.009 Urine Protein Negative Urine Glucose (UA) Negative Urine Ketones 1+ H Urine Blood Negative Urine Nitrite Negative Urine Bilirubin Negative Urine Urobilinogen Negative Ur Leukocyte Esterase Negative Salicylates < 3.0 L Urine Opiates Screen Neg Ur Methadone, Qual Neg Acetaminophen < 3 L Urine Barbiturates Neg Ur Phencyclidine (PCP) Neg U Amphetamin/Meth Scrn Neg Urine MDEA negative MDMA (Ecstasy) Screen Pos H MDMA negative Urine MDMA negative U Benzodiazepines Scrn Neg Ur Cocaine Metabolite Neg U Marijuana (THC) Screen Pos H U Marijuana THC Carboxy 52 H Drug Screen Comment SEE NOTE Ethyl Alcohol mg/dL < 10.0 SARS-CoV-2, RNA, NAAT NEGATIVE 01/12/24 14:10 WBC RBC Hgb Hct MCV MCH MCHC RDW Std Deviation RDW Coeff of Samy Plt Count MPV Immature Gran % (Auto) Neut % (Auto) Lymph % (Auto) Bureau % (Auto) Eos % (Auto) Baso % (Auto) Neut # (Auto) Lymph # (Auto) Bureau # (Auto) Eos # (Auto) Baso # (Auto) Immature Gran # (Auto) Sodium Potassium Chloride Carbon Dioxide Anion Gap BUN Creatinine Est Cr Clr Drug Dosing Est GFR ( Amer) Est GFR (Non-Af Amer) BUN/Creatinine Ratio Glucose Fasting Glucose Calcium Total Bilirubin AST ALT Alkaline Phosphatase Total Protein Albumin Globulin Albumin/Globulin Ratio Triglycerides Cholesterol LDL Cholesterol, Calc VLDL Cholesterol, Calc HDL Cholesterol Cholesterol/HDL Ratio TSH Urine Color Yellow Urine Appearance Clear Urine pH 7.5 Ur Specific [place] 1.010 Urine Protein Negative Urine Glucose (UA) Negative Urine Ketones Negative Urine Blood Negative Urine Nitrite Negative Urine Bilirubin Negative Urine Urobilinogen Negative Ur Leukocyte Esterase Negative Salicylates Urine Opiates Screen Ur Methadone, Qual Acetaminophen Urine Barbiturates Ur Phencyclidine (PCP) U Amphetamin/Meth Scrn Urine MDEA MDMA (Ecstasy) Screen MDMA Urine MDMA U Benzodiazepines Scrn Ur Cocaine Metabolite U Marijuana (THC) Screen U Marijuana THC Carboxy Drug Screen Comment Ethyl Alcohol mg/dL SARS-CoV-2, RNA, NAAT Current Inpatient Medications Current Inpatient Medications: Current Inpatient Medications Acetaminophen (Acetaminophen 325 Mg Tab) 650 mg PO Q4H PRN PRN Reason: Headache or Minor Fever Stop: 02/06/24 14:32 Al Hydrox/Mg Hydrox/Simethicone (Aluminum/Magnesium Susp 30 Ml Udc) 30 ml PO Q4H PRN PRN Reason: GI Upset Stop: 02/06/24 14:32 Bismuth Subsalicylate (Bismuth Subsalicylate Liqd 236 Ml) 15 ml PO PRN PRN PRN Reason: Loose Stool Stop: 02/06/24 14:32 Hydroxyzine HCl (Hydroxyzine Hcl 25 Mg Tab) 50 mg PO HSZ PRN PRN Reason: Insomnia Stop: 02/06/24 14:32 Last Admin: 01/08/24 21:05 Dose: 50 mg Hydroxyzine HCl (Hydroxyzine Hcl 25 Mg Tab) 25 mg PO Q4H PRN PRN Reason: Anxiety Stop: 02/06/24 14:32 Last Admin: 01/08/24 22:05 Dose: 25 mg [place] Carbonate ([place] Carbonate 300 Mg Tab) 300 mg PO BID MARJORIE Stop: 02/09/24 20:59 Last Admin: 01/13/24 08:47 Dose: 300 mg Magnesium Hydroxide (Magnesium Hydroxide Susp 30 Ml Udc) 30 ml PO DAILY PRN PRN Reason: Constipation Stop: 02/06/24 14:32 Olanzapine (Olanzapine 2.5 Mg Tab) 2.5 mg PO BID PRN PRN Reason: Agitation/paranoia Stop: 02/08/24 20:59 Last Admin: 01/12/24 08:55 Dose: 2.5 mg Olanzapine (Olanzapine 10 Mg Tab) 10 mg PO HS MARJORIE Stop: 02/10/24 21:59 Last Admin: 01/12/24 21:07 Dose: 10 mg Sodium Chloride (Sodium Chloride 0.65% Na Soln 45 Ml ([place])) 1 - 2 sprays NA PRN PRN PRN Reason: Nasal Dryness/Congestion Stop: 02/06/24 14:32 Mental Health & Subst Abuse Tx Psychiatrist Name of Psychiatrist: Billy Guillen (1.5 hour appointment for intake) Psychiatrist's Date Of Appointment With Psychiatric Provider: 01/18/24Sunday Time of Appointment with Psychiatrist: 2:15pm Psychiatric Appointment Comment: Please arrive 15 minutes early with photo ID & insurance card Therapist Name of Therapist: [facility]- Jasmine Gentile Date of Therapist Appointment: 01/14/2024 Time of Therapist Appointment: 1:30pm Armoring Machine Operator Name of Armoring Machine Operator: [facility] - Calvin Hay Date of Appointment with Armoring Machine Operator: 01/21/24 Time of Appointment with Armoring Machine Operator: 3:00 PM Case Management Appointment Comment: BCM will meet you at your home. Post Discharge Appointments Primary Care Physician Name Of Family Doctor/PCP: None per patient (2) Depression Depression Type: unspecified Qualified Code(s): F32.A - Depression, unspecified
--- NOTE | 2024-01-14 09:09 | Discharge Summary ---
Date of Service January 14, 2024 History of Present Illness Per admitting psychiatrist: Rosalio is a 28 year old man with a history of schizoaffective disorder, OCD, anxiety and polysubstance use who was admitted for worsened depression with SI with multiple plans in the context of increased paranoia and auditory hallucinations. Diagnostically consistent with unspecified psychosis with differential including schizoaffective disorder current depressive episode versus BPAD current depressed episode with psychotic features vs substance- induced (though has not used methamphetamine in a few years, possible that cannabis is contributing to paranoia). He is deemed in need of psychiatric hospitalization for diagnostic clarification, safety and stabilization, medication management and development of further coping skills. His symptoms on admission included: hopelessness, poor sleep, poor appetite, tearfulness, anhedonia, poor motivation, low energy and SI with a plan and has been researching possible ways to . He reports the schizoaffective disorder was diagnosed a few years ago when he was having auditory hallucinations though he notes he was using methamphetamine at the time. Currently he feels his more prominent symptoms are anxiety especially around people noting he has "hypervigilance" when people are leaving the room and "sometimes what I hear is not all right". He's particularly bothered by distant voices as he feels "they are always about me". Typically the voices are mean but sometimes they can be neutral. He also described "extreme rumination and OCD". He notes he will call people 7 times in a row and constantly feels that people might be talking about him or are "after me". He is not currently prescribed any psychiatric medications, he discontinued his previous psychiatric medications 5 months ago. Psychiatric ROS notable for history of iveth with increased confidence, high energy, "telling people what to do", "I thought very highly of myself". Physical Exam Psychiatric Orientation: alert and oriented x 3 Apperance: appropriately dressed and appropriately groomed Eye Contact: good eye contact Motor Behavior: steady gait and station and no abnormal motor movements Speech: normal rate/rhythm/volume of speech Affect: euthymic affect; no depressed affect and no anxious affect Mood: no depressed mood and no anxious mood Thought Process: goal directed thought process Thought Content: + ideas of reference; not paranoid Suicidal Thoughts: denies suicidal thoughts Homicidal Thoughts: denies homicidal thoughts Hallucinations: no auditory hallucinations and no visual hallucinations Cognition: recent memory grossly intact, remote memory grossly intact, attention grossly intact and language grossly intact Estimated Intelligence: consistent with education level Insight: good insight Judgment: good judgement Vital Signs (Past 24 Hours) Last Vital Signs Temp 36.8 C 01/14/24 06:36 Pulse 79 01/14/24 06:37 Resp 16 01/14/24 06:36 BP 126/70 01/14/24 06:37 Pulse Ox 97 01/10/24 06:25 O2 Del Method Room Air 01/10/24 06:25 A physical exam was performed in the ED by Dr. Cid for the purposes of medical clearance. I accept that physical as correct and adequate for the purposes of the inpatient physical exam. See admission H&P and DOD assessment. Principal Diagnosis Bipolar disorder most recent episode depressed with psychosis Substance use disorder Obsessive-compulsive disorder Psychiatric Data See daily stay summary. In short, safety was maintained and the patient was cooperative with care. Medication changes were well tolerated. A family session was held on 01/14/2024 with his father and safety plan was completed prior to discharge. Medication changes included: 01/13/2024: -Continue lithium 300 mg twice daily. It is too early to order a level. Patient educated that if discharged tomorrow, he will need to get Li level with his OP psychiatrist. There is no evidence of toxicity. Educated about maintaining good hydration. -Continue olanzapine 10 mg at bedtime 01/12/2024: -Continue lithium 300 mg twice daily -Continue olanzapine 10 mg at bedtime -Continue monitoring mood and sleep pattern -Repeat UA, Monitor urinary tract symptoms 01/11/2024: -Continue Oakley 300mg BID -Increase olanzapine to 10mg HS 01/10/2024: -Increase Oakley 300mg BID -Continue olanzapine 5mg HS with 2.5mg BID prn for paranoia 01/09/2024: -Continue Oakley -Stop Abilify -Start olanzapine 5mg HS and 2.5mg BID prn for paranoia 01/08/2024: The patient was admitted to the [facility] ([facility]) on q15 min checks (behavioral with suicide precautions) for safety. The patient will participate in group, recreational, and milieu therapies and will be offered additional individual and family sessions as clinically appropriate. -Start Oakley carbonate 300mg HS -Start abilify 5mg HS and 2.5mg BID prn for agitation/paranoia Day of Discharge Assessment Today the patient voices readiness for discharge. They note improvement in mood and deny thoughts to harm self or others. Thoughts remain organized and they are improved from admission. There is no evidence of psychosis. They agree to take mediations as prescribed and keep follow-up appointments. They are stable for discharge to outpatient level of care. We discussed rationale for keeping Dx of Bipolar DO. Patient shared information regarding other episodes of increased energy and decreased need for sleep in the past. This recent episode may have been more severe during to the impact of large amount of MJ and caffeinated drinks. Transition of Care Transition Of Care Record: was reviewed with the patient Advance Directives Advance Directives Information Provided: Yes Advance Directives: No Mental Health Advance Directive: No Advance Directives on File: No Living Will: No Power of Auto Repair Shop Manager: No Advance Directives Reason:: Declines as Mental Health Visit. Suicide Risk Level Suicide Risk Level: Moderate (q15 min suicide checks) (Moderate on admission. Imminent risk is low at the time of discharge. ) Suicide Risk Level Comments: Suicide risk at discharge is deemed low as the patient is no longer requiring 24-hr monitoring, has a safety plan, and is free of suicidal ideation at discharge. Risk Factors Assessment Male: Yes : Yes Do You Have Access To A Gun?: No Health Problems: No Mental Health Diagnoses: Yes Substance Use Disorders: No (but in the past and uses cannabis frequently ) Previous Attempt: No Family History of Suicide: No Previous Psychiatric Hospitalization: No Protective Factors Assessment Employed: No Supportive Family: Yes (his dad) Discharge Data Lab Results 01/07/24 01/07/24 01/09/24 11:10 Unknown 07:41 WBC 8.77 RBC 5.19 Hgb 15.5 Hct 44.9 MCV 86.5 MCH 29.9 MCHC 34.5 RDW Std Deviation 40.5 RDW Coeff of Samy 13.0 Plt Count 328 MPV 10.8 Immature Gran % (Auto) 0.2 Neut % (Auto) 74.2 Lymph % (Auto) 16.2 [place] % (Auto) 8.4 Eos % (Auto) 0.8 Baso % (Auto) 0.2 Neut # (Auto) 6.50 Lymph # (Auto) 1.42 [place] # (Auto) 0.74 H Eos # (Auto) 0.07 Baso # (Auto) 0.02 Immature Gran # (Auto) 0.02 Sodium 135 L 139 Potassium 4.1 Chloride 103 Carbon Dioxide 24 Anion Gap 8 BUN 13 Creatinine 0.83 Est Cr Clr Drug Dosing 194.0 Est GFR ( Amer) 140.7 Est GFR (Non-Af Amer) 121.4 BUN/Creatinine Ratio 15.7 Glucose 90 Fasting Glucose 91 Calcium 9.1 Total Bilirubin 0.4 AST 17 ALT 17 Alkaline Phosphatase 81 Total Protein 7.7 Albumin 4.4 Globulin 3.3 Albumin/Globulin Ratio 1.3 Triglycerides 129 Cholesterol 170 LDL Cholesterol, Calc 95 VLDL Cholesterol, Calc 26 HDL Cholesterol 49 Cholesterol/HDL Ratio 3.5 TSH 0.665 Urine Color Yellow Urine Appearance Clear Urine pH 6.0 Ur Specific [place] 1.009 Urine Protein Negative Urine Glucose (UA) Negative Urine Ketones 1+ H Urine Blood Negative Urine Nitrite Negative Urine Bilirubin Negative Urine Urobilinogen Negative Ur Leukocyte Esterase Negative Salicylates < 3.0 L Urine Opiates Screen Neg Ur Methadone, Qual Neg Acetaminophen < 3 L Urine Barbiturates Neg Ur Phencyclidine (PCP) Neg U Amphetamin/Meth Scrn Neg Urine MDEA negative MDMA (Ecstasy) Screen Pos H MDMA negative Urine MDMA negative U Benzodiazepines Scrn Neg Ur Cocaine Metabolite Neg U Marijuana (THC) Screen Pos H U Marijuana THC Carboxy 52 H Drug Screen Comment SEE NOTE Ethyl Alcohol mg/dL < 10.0 SARS-CoV-2, RNA, NAAT NEGATIVE 01/12/24 14:10 WBC RBC Hgb Hct MCV MCH MCHC RDW Std Deviation RDW Coeff of Samy Plt Count MPV Immature Gran % (Auto) Neut % (Auto) Lymph % (Auto) [place] % (Auto) Eos % (Auto) Baso % (Auto) Neut # (Auto) Lymph # (Auto) [place] # (Auto) Eos # (Auto) Baso # (Auto) Immature Gran # (Auto) Sodium Potassium Chloride Carbon Dioxide Anion Gap BUN Creatinine Est Cr Clr Drug Dosing Est GFR ( Amer) Est GFR (Non-Af Amer) BUN/Creatinine Ratio Glucose Fasting Glucose Calcium Total Bilirubin AST ALT Alkaline Phosphatase Total Protein Albumin Globulin Albumin/Globulin Ratio Triglycerides Cholesterol LDL Cholesterol, Calc VLDL Cholesterol, Calc HDL Cholesterol Cholesterol/HDL Ratio TSH Urine Color Yellow Urine Appearance Clear Urine pH 7.5 Ur Specific [place] 1.010 Urine Protein Negative Urine Glucose (UA) Negative Urine Ketones Negative Urine Blood Negative Urine Nitrite Negative Urine Bilirubin Negative Urine Urobilinogen Negative Ur Leukocyte Esterase Negative Salicylates Urine Opiates Screen Ur Methadone, Qual Acetaminophen Urine Barbiturates Ur Phencyclidine (PCP) U Amphetamin/Meth Scrn Urine MDEA MDMA (Ecstasy) Screen MDMA Urine MDMA U Benzodiazepines Scrn Ur Cocaine Metabolite U Marijuana (THC) Screen U Marijuana THC Carboxy Drug Screen Comment Ethyl Alcohol mg/dL SARS-CoV-2, RNA, NAAT Hospital Course (1) Unspecified psychosis not due to a substance or known physiological condition: (2) Depression: Plan Today the patient voices readiness for discharge. They note improvement in mood and deny thoughts to harm self or others. Thoughts remain organized and they are improved from admission. There is no evidence of psychosis. They agree to take mediations as prescribed and keep follow-up appointments. They are stable for discharge to outpatient level of care. He reported feeling optimistic about a new job he will be starting in next week. Recommended to get Oakley level, kidney function tests, and thyroid function test follow up for medication monitoring. Encouraged to maintain sobriety Recommended to observe good sleep hygiene. Mental Health & Subst Abuse Tx Psychiatrist Name of Psychiatrist: Billy Guillen (1.5 hour appointment for intake) Psychiatrist's Date Of Appointment With Psychiatric Provider: 01/18/24Sunday Time of Appointment with Psychiatrist: 2:15pm Psychiatric Appointment Comment: Please arrive 15 minutes early with photo ID & insurance card Therapist Name of Therapist: [facility]- Jasmine Gentile Date of Therapist Appointment: 01/14/2024 Time of Therapist Appointment: 1:30pm [facility] Name of [facility]: [facility] Calvin Hay Phone Number for [facility]: [phone] Date of Appointment with [facility]: 01/21/24 Time of Appointment with [facility]: 3:00 PM (staff called and requested a sooner appt.) Case Management Appointment Comment: BCM will meet you at your home. Post Discharge Appointments Primary Care Physician Name Of Family Doctor/PCP: None per patient Discharge Plan Discharge Items Patient Disposition: Home - Self-Care Reason For Visit: UNSPECIDIED DEPRESSIVED DISORDER AND SI Discharge Diagnosis: Bipolar Disorder, MRE depressed with psychosis OCD Polysubstance use Condition on Discharge: Good Health Concerns: No chronic medical conditions. Activity: Resume your previous activity Driving/Machine Use: Current mediations can cause sedation avoid if feeling sedated Non-emergency contact: Primary Care Provider, Psychiatrist and Therapist Call non-emergency contact if: you have any medication questions and your symptoms worsen Follow-up/Referrals: PCPKARAN [Primary Care Provider] - Diet: Regular Addtl Attending Provider Instructions: SPECIAL CARE INSTRUCTIONS: 1. Follow through with your scheduled aftercare appointments. If unable to keep an appointment, please call to reschedule. 2. Take your medication only as prescribed. Medication should not be changed or stopped without the approval of your doctor. In the event of worsening symptoms or concerns about side effects, contact your doctor immediately. 3. Utilize new healthy coping skills, anger management skills, and stress management skills learned during your hospitalization. Journal feelings and process them with a support person. Identify stressors or situations that may result in relapse, deterioration or inappropriate behaviors and develop a plan to deal with those issues. 4. If your coping skills are ineffective and you are in crisis, contact your outpatient providers for direction. If unable to reach your providers, please call the [facility] CRISIS LINE AT , go to the [facility] walk-in center at [address], [address], [place], or go to the closest Emergency Room. 5. Avoid alcohol and un-prescribed drugs. 6. You have been provided with the Mental Health Advance Directives Pamphlet for your review. 7. Your condition is stable for discharge to outpatient level of care, but recovery is an ongoing process. Ifthoughts to harm yourself or others return, follow the safety plan developed during your stay. Planning for a safe return home includes securing weapons. Our treatment team recommends weaponsbe removed from the home until your outpatient provider reassesses your progress. In rare cases where the items themselvescannot be removed, guns and ammunitionshould be secured separatelyand keys stored by a reliable personoutside of the home. If you were admitted on an involuntary commitment, the police or other legal authorities may be involved in this process. AFTERCARE APPOINTMENTS: * Please call your insurance company prior to your scheduled appointment to confirm your aftercare providers are covered. Take your insurance information to your appointments. WHO TO CALL AND WHEN: Medical Emergencies: For questions or emergencies related to your hospital stay, please contact the Inpatient Behavioral Health Unit at [phone]. A diesel powerplant supervisor is on-call 16/04 for the Behavioral Health Unit for emergencies At any time you feel your situation is an emergency, you may also call 911 immediately. Or call [employer] Suicide Lifeline 988 Pending Studies at Discharge: Yes Studies:: Oakley level Stand-Alone Forms: [facility] [employer], Smoking Cessation Medications and DC Order Prescriptions: New olanzapine 10 mg Tablet 10 mg PO HS 30 Days Qty: 30 0RF hydroxyzine HCl 25 mg Tablet 25 mg PO Q4H 30 Days Qty: 60 0RF lithium carbonate 300 mg Tablet 300 mg PO BID 30 Days Qty: 60 0RF Discontinued trazodone 100 mg tablet 100 mg PO HS bupropion HCl 100 mg tablet 100 mg PO DAILY lurasidone 40 mg tablet 40 mg PO DAILY Discharge Orders: Discharge Order (Routine); Ordered 01/14/24 Ordered By: Judith Mobley Admission Data Admit Date/Time: 01/07/24 14:34 Attending Provider: Clementine Lebron Admit Provider: Clementine Lebron Primary Care Provider: PCP,NO Other Interventions: Discharge Summary Assessment (RN) Last Done: 01/14/24 09:12 PSY Interdisciplinary Discharge Planning Last Done: 01/14/24 10:46 [place] [address] D/C day mgmt > 30 min Patient Type Established History Detailed Exam Detailed Medical Decision Making High Complexity Diagnoses Unspecified psychosis not due to a substance or known physiological condition F29 Depression F32.A Depression Type: unspecified Time Spent (min) 60
== END 2024-01-14 11:23 | disposition home or self-care (01) | DRG 885 ==
LOC: ED 10:32 → 3S 14:34